=== PATIENT | male | born 1955 | race Caucasian/White ===

== ENCOUNTER 2017-04-29 09:47 | Day surgery (SDC) | payer OTHER ==
[2017-04-20 12:29] VITALS: BMI 28.5
--- NOTE | 2017-04-29 07:42 | HP ---
History & Physical Update - History History: No Change - Physical Physical: No Change - Assessment Assessment: No Change - Plan Plan: No Change (This is my first time meeting the patient. I have informed him that I will be assisting Dr. Newton for todays procedure. He is fine with it.)
[2017-04-29] MEDS ORDERED: oxyCODONE HCL 10 MG SUSTAINED ACTING TABLET PO STA (10:04)
[2017-04-29] MEDS ORDERED: CEFAZOLIN 2 GM in DEXTROSE 5%-WATER - 100 ML IVPB ONE (10:04)
[2017-04-29] MEDS ORDERED: oxyCODONE HCL 5 MG TABLET PO PRN (10:22)
[2017-04-29] MEDS ORDERED: ONDANSETRON 4 MG/2 ML VIAL IVPUSH PRN (10:22)
[2017-04-29] MEDS ORDERED: LACTATED RINGERS SOLUTION 1,000 ML IV SCH (10:30)
[2017-04-29] MEDS ORDERED: THROMBIN (BOVINE) 5,000 UNIT VIAL TP ONE ×2 (11:29→13:29)
[2017-04-29] MEDS ORDERED: LIDOCAINE 1%-EPI 1:100,000 30 ML MDV IJ ONE (11:29)
[2017-04-29] MEDS ORDERED: methylPREDNISolone ACET (DEPO) 40 MG/1 ML VIAL ONE (11:29)
[2017-04-29] MEDS ORDERED: BUPIVACAINE HCL/PF 2.5 MG/ML - 30 ML VIAL IJ ONE (11:29)
[2017-04-29] MEDS ORDERED: BUPIVACAINE HCL/PF 0.5% (5MG/ML) 10 ML VIAL ONE (11:59)
[2017-04-29] MEDS ORDERED: MIDAZOLAM HCL 2 MG/2 ML SINGLE DOSE VIAL ONE ×2 (12:02→12:54)
[2017-04-29] MEDS ORDERED: ONDANSETRON 4 MG/2 ML VIAL ONE (12:32)
[2017-04-29] MEDS ORDERED: DEXAMETHASONE SOD PHOSPHATE 4 MG/1 ML VIAL ONE (12:32)
[2017-04-29] MEDS ORDERED: ceFAZolin SODIUM 1 GM VIAL ONE (12:32)
[2017-04-29] MEDS ORDERED: LIDOCAINE 1%/EPI 1:100000 (50 ML MULTI DOSE VIAL) INF ONE (12:32)
[2017-04-29] MEDS ORDERED: methylPREDNISolone ACET (DEPO) 40 MG/1 ML VIAL IM ONE (13:44)
[2017-04-29] MEDS ORDERED: BUPIVACAINE HCL/PF 0.25% (2.5MG/ML) 10 ML VIAL IJ ONE (13:53)
--- NOTE | 2017-04-29 14:18 | SURG ---
Surgery Tablet Making Machine Operator Note Tablet Making Machine Operator: Seb Glass PA-C Date of Service: 04/29/17 Diagnosis: Spinal stenosis with radiculopathy Procedure: Bilateral laminectomy L3-L4, L4-L5 I was present for the entirety of the operative procedure. For further detail, please refer to operative report. Visit type - Case Type Case Type: Scheduled Admission - New patient This patient is new to me today: Yes Date on this admission: 04/29/17
--- NOTE | 2017-04-29 14:18 | OP ---
Operative Note - Note: Operative Date: 04/29/17 Pre-Operative Diagnosis: Spinal stenosis Operation: Bilateral laminectomy L3-L4, L4-L5 Post-Operative Diagnosis: Same as Pre-op Surgeon: Ramos Newton Heel Seat Trimmer: Seb Glass Anesthesia: Spinal Specimens Removed: None. Estimated Blood Loss (mls): 20 Fluid Volume Replaced (mls): 1,000 Operative Report Dictated: Yes
[2017-04-29] MEDS ORDERED: ACETAMINOPHEN 1000 MG/100 ML VIAL (NON FORMULARY) IVPB ONE (14:23)
--- NOTE | 2017-04-29 15:32 | OP ---
DATE OF OPERATION: 04/29/2017 PREOPERATIVE DIAGNOSIS: Spinal stenosis L3-4, L4-5. POSTOPERATIVE DIAGNOSIS: Spinal stenosis L3-4, L4-5. PROCEDURE PERFORMED: Laminectomy L3-4, L4-5. SURGEON: Ramos Newton MD NEEDLE STRAIGHTENER: BRENDA Armendariz ESTIMATED BLOOD LOSS: 50 mL. INTRAVENOUS FLUIDS: Per Anesthesia. ANESTHESIA: Spinal. COMPLICATIONS: There were none. DISPOSITION: Patient brought to the PACU in stable condition. INDICATION FOR SURGERY: The patient is a 61-year-old gentleman who has been suffering from pain from his back down his legs. X-rays and MRI were completed which noted that he has spinal stenosis at that level. He had gone through an exhaustive course of treatment for this which included medications, physical therapy, as well as injections. Unfortunately, his pain continued to persist despite all this. At this point risks, benefits, and alternatives were discussed and the patient consented to surgery. OPERATIVE NOTE: The patient was brought to the operating room by anesthesia staff. After appropriate patient identification was performed, spinal anesthesia was given. He was placed prone onto the [place] frame with all areas of bony prominences well padded. At this time 2 needles were placed into his back to jamie off the L3 and L5 levels. An x-ray was taken to confirm this was correct. [place] were removed and 10 mL of lidocaine with epinephrine was injected into his back. At this time his back was prepped and draped in a sterile manner. At this point timeout was completed. An incision was made from the top of L3 down to the bottom of L5. Dissection was carried down to the fascia. Fascia was then split open at this time. Appropriate retractor was then placed and a spinal needle was placed down to the L4-5 level. An x-ray was taken to confirm this was correct. Needle was removed, and the interspinous ligament at L3-4 and L4-5 was removed. The [employer] bone cutter was used to remove the spinous process of L4. The microscope was brought in. A bur was used to remove the lamina of L4. A complete decompression was performed so that by the end of the procedure the L4 and L5 nerve roots appeared to be well decompressed. All bleeding was well controlled at this time. Steroid was placed over the nerve root. FloSeal was placed over that. The fascia was closed with a No. 1 Vicryl suture. The subcutaneous tissue was closed with 2-0 Vicryl suture. Skin was closed with 3-0 Monocryl suture. Dermabond was applied. Steri-Strips were applied. A sterile dressing was applied. The patient was placed supine on the OR bed and brought to the PACU in stable condition. Bertha WEBBER/[id number]
[2017-04-29] MEDS ORDERED: oxyCODONE HCL 5 MG TABLET ONE ×2 (15:58→16:47)
[2017-04-29 16:33] VITALS: TEMP 98.1
[2017-04-29 18:21] VITALS: BP 126/78; PULSE 83
== END 2017-04-29 17:15 | disposition home or self-care (01) ==
LOC: FASU 09:47
PROVIDERS: ATTEND Orthopaedic Surgery Orthopaedic Surgery of the Spine
PROC: 01NB0ZZ Release Lumbar Nerve, Open Approach (ICD-10-PCS; principal; 2017-04-29 12:43)
DX: M48.06 Spinal stenosis, lumbar region (principal)
CPT/HCPCS: 72100-TC; 76000-TC; 94760

== ENCOUNTER 2017-05-10 17:52 | Inpatient (IN) | payer OTHER ==
--- NOTE | 2017-05-10 20:13 | PDOC ---
History of Present Illness - General History Source: Patient Exam Limitations: No Limitations - History of Present Illness Initial Comments: 05/10/17 20:58 The patient is a 61-year-old male, with a significant past medical history of GERD, hiatal hernia, barretts syndrome, squamous cell carcinoma, dyslipidemia, who presents to the ED with fever and worsening back pain. The patient states that his temperature was greater than 101 at home. The patient denies any chills, nausea, vomiting, diarrhea, or abdominal pain. <Felipa Babb - Last Filed: 05/10/17 23:36> <Emi Mccrary - Last Filed: 05/11/17 01:09> - General Chief Complaint: Wound Infection Stated Complaint: POST OP PAIN Time Seen by Provider: 05/10/17 17:54 Past History <Felipa Babb - Last Filed: 05/10/17 23:36> - Past Medical History Anemia: No Asthma: No Cancer: No Cardiac Disorders: No CVA: No COPD: No CHF: No Dementia: No Diabetes: No GI Disorders: Yes (VERDUGO'S GERD, HIATAL HERNIA) Disorders: No HTN: No Hypercholesterolemia: Yes Liver Disease: No Seizures: No Thyroid Disease: No - Surgical History Abdominal Surgery: No Appendectomy: No Cardiac Surgery: No Cholecystectomy: No Lung Surgery: No Neurologic Surgery: No Orthopedic Surgery: No - Psycho/Social/Smoking Cessation Hx Suicidal Ideation: No Smoking History: Never smoked Have you smoked in the past 12 months: No If you are a former smoker, when did you quit?: 2004 Information on smoking cessation initiated: No Hx Alcohol Use: No Drug/Substance Use Hx: No Substance Use Type: None Hx Substance Use Treatment: No <Emi Mccrary - Last Filed: 05/11/17 01:09> - Past Medical History Allergies/Adverse Reactions: Allergies Allergy/AdvReac Type Severity Reaction Status Date / Time No Known Drug Allergies Allergy Unverified 05/10/17 17:58 Home Medications: Ambulatory Orders Atorvastatin Ca [Lipitor] 40 mg PO HS 03/29/13 Fenofibrate 160 mg PO DAILY 11/06/15 Pantoprazole Sodium [Protonix -] 40 mg PO DAILY 07/14/16 Ibuprofen [Motrin -] 600 mg PO DAILY PRN 04/20/17 Oxycodone HCl/Acetaminophen [Percocet 5-325 mg Tablet] 1 tab PO Q6H PRN #20 tablet MDD 4 04/29/17 Review of Systems - Review of Systems Able to Perform ROS?: Yes Comments:: 05/10/17 20:58 CONSTITUTIONAL: Present: fever Absent: no chills, no fatigue EYES: Absent: visual changes ENT: Absent: ear pain, no sore throat CARDIOVASCULAR: Absent: chest pain, no palpitations RESPIRATORY: Absent: cough, no SOB GI: Absent: abdominal pain, no nausea, no vomiting, no constipation, no diarrhea GENITOURINARY: Absent: dysuria, no frequency, no hematuria MUSKULOSKELETAL: Present: back pain Absent: no arthralgia SKIN: Absent: rash NEURO: Absent: headache <Felipa Babb - Last Filed: 05/10/17 23:36> *Physical Exam - Vital Signs Last Vital Signs Temp Pulse Resp BP Pulse Ox 99.1 F 102 H 18 122/77 99 05/10/17 17:54 05/10/17 17:54 05/10/17 17:54 05/10/17 17:54 05/10/17 17:54 - Physical Exam Comments: 05/10/17 20:59 GENERAL: Well-appearing, well-nourished. HEENT: Normocephalic, atraumatic. PERRL, EOM intact. CARDIOVASCULAR: Normal S1, S2. Regular rate and rhythm. PULMONARY: Clear to auscultation bilaterally. ABDOMEN: Soft, non-distended, non-tender. MSK: +old 4 cm linear surgical incision on back. lumbar area: 10 cm linear incision that is closed and there is a surrounding area of mild erythema (20 cm around whole area). EXTREMITIES: Normal ROM in all four extremities. No gross deformities. SKIN: Warm, dry. NEUROLOGICAL: No focal neurological deficits. <Felipa Babb - Last Filed: 05/10/17 23:36> - Vital Signs Last Vital Signs Temp Pulse Resp BP Pulse Ox 99.1 F 102 H 18 122/77 99 05/10/17 17:54 05/10/17 17:54 05/10/17 17:54 05/10/17 17:54 05/10/17 17:54 <Emi Mccrary - Last Filed: 05/11/17 01:09> ED Treatment Course - LABORATORY CBC & Chemistry Diagram: 05/10/17 20:50 05/10/17 21:20 <SkinnyFelipa - Last Filed: 05/10/17 23:36> - LABORATORY CBC & Chemistry Diagram: 05/10/17 20:50 05/10/17 21:20 <Emi Mccrary - Last Filed: 05/11/17 01:09> Medical Decision Making - Medical Decision Making 05/10/17 21:48 Dr. Wilkerson was paged and notified via phone service. 05/10/17 22:08 Dr. Ramos Avilez was paged and notified via phone service. 05/10/17 23:37 Dr. Wilkerson was paged once again for follow-up. <Felipa Babb - Last Filed: 05/10/17 23:36> - Medical Decision Making 05/11/17 01:05 61 yo male s/p laminectomy April 29 p/w history of fever,increasing back pain and erythema around the site - reviewing his labs he has a leukocytosis of 18,000 -we paged the surgeon Dr Ramos Avilez and spoke to his physician volunteer assistant . She called him several times but he never returned her calls -the pt's primary physician is Dr Luigi Pyle and Dr Wilkerson admits his patients so I spoke with her and she agreed to admit for IV antibiotics <Emi Mccrary - Last Filed: 05/11/17 01:09> *DC/Admit/Observation/Transfer - Attestations Scribe Attestion: 05/10/17 21:03 Documentation prepared by Felipa Babb, acting as manager medical writing for Emi Mccrary MD. <Felipa Babb - Last Filed: 05/10/17 23:36> - Discharge Dispostion Admit: Yes <Emi Mccrary - Last Filed: 05/11/17 01:09> Diagnosis at time of Disposition: Wound drainage Fever Qualifiers: Fever type: due to other condition Qualified Code(s): R50.81 - Fever presenting with conditions classified elsewhere Leukocytosis Qualifiers: Leukocytosis type: other Qualified Code(s): D72.828 - Other elevated white blood cell count - Referrals Referrals: Luigi Pyle MD [Primary Care Provider] -
[2017-05-10] MEDS ORDERED: PIPERACILLIN/TAZOB 3.375 GM 3.375 GM in DEXTROSE 5%-WATER - 50 ML IVPB ONE (20:14)
[2017-05-10] MEDS ORDERED: VANCOMYCIN 1,000 MG in DEXTROSE 5%-WATER - 250 ML IVPB ONE (20:15)
[2017-05-10] MEDS ORDERED: VANCOMYCIN 1 GRAM (PRE-DOCKED) 250 ML IVPB ONE (21:03)
[2017-05-10] MEDS ORDERED: PIPERACILLIN/TAZOB 3.375 GM 50 ML IVPB ONE (21:03)
[2017-05-10 21:05] LABS: VENOUS BLOOD GAS HCO3 24.6 meq/L (19-25); VENOUS PH 7.35 (7.32-7.42)
[2017-05-10 21:09] LABS: BASOPHIL 0.2 % (0-2.0); EOSINOPHIL 0.4 % (0-4.5); MCH 32.6 pg (25.7-33.7); MCHC 33.8 g/dl (32.0-35.9); MEAN CELL VOLUME 96.4 fl (80-96); MEAN PLT VOLUME 7.8 fl (7.5-11.1); NEUTROPHILS 83.4 % (42.8-82.8); PLATELET COUNT 304 K/MM3 (134-434); RDW 12.9 % (11.9-15.9); WHITE BLOOD COUNT 18.2 K/mm3 (4.0-10.0)
[2017-05-10 21:26] LABS: INR 1.15 (0.82-1.09); PROTHROMBIN TIME (PATIENT) 12.7 SEC (9.98-11.88)
[2017-05-10 21:28] LABS: ACTIVATED PTT 29.1 SECONDS (26.9-34.4)
[2017-05-10 22:08] LABS: ALBUMIN 3.5 g/dl (3.4-5.0); ANION GAP 12 (8-16); BILIRUBIN,TOTAL 0.3 mg/dL (0.2-1.0); CALCIUM 9.2 mg/dL (8.5-10.1); CO2 23 mmol/L (21-32); CREATININE 0.8 mg/dL (0.7-1.3); GLUCOSE,RANDOM 99 mg/dL (74-106); SGOT/AST 17 U/L (15-37); SGPT/ALT 19 U/L (12-78); TOT PROT 7.2 g/dl (6.4-8.2)
[2017-05-10 22:10] LABS: ALK PHOS 70 U/L (45-117); TROPONIN I < 0.02 ng/ml (0.00-0.05)
[2017-05-11] MEDS ORDERED: PIPERACILLIN/TAZOB 3.375 GM/50 ML PRE-DOCKED IVPB ONE (05:15)
[2017-05-11] MEDS: morphine CARPU-JECT 2 MG/1 ML DISP.SYRIN IVPB PRN ×2 (05:28→20:08)
[2017-05-11 05:45] VITALS: BMI 29.5
[2017-05-11 08:37] LABS: MCH 33.4 pg (25.7-33.7); MCHC 34.8 g/dl (32.0-35.9); MEAN CELL VOLUME 95.9 fl (80-96); MEAN PLT VOLUME 7.5 fl (7.5-11.1); PLATELET COUNT 273 K/MM3 (134-434); RDW 12.7 % (11.9-15.9); WHITE BLOOD COUNT 15.6 K/mm3 (4.0-10.0)
[2017-05-11 08:57] LABS: ALBUMIN 3.4 g/dl (3.4-5.0); ANION GAP 9 (8-16); BILIRUBIN,TOTAL 0.5 mg/dL (0.2-1.0); CALCIUM 9.3 mg/dL (8.5-10.1); CO2 28 mmol/L (21-32); CREATININE 0.8 mg/dL (0.7-1.3); GLUCOSE,RANDOM 108 mg/dL (74-106); SGOT/AST 10 U/L (15-37); SGPT/ALT 18 U/L (12-78); TOT PROT 6.9 g/dl (6.4-8.2)
[2017-05-11 08:58] LABS: ALK PHOS 59 U/L (45-117)
[2017-05-11] MEDS ORDERED: PIPERACILLIN/TAZOB 3.375 GM/50 ML PRE-DOCKED IVPB SCH (09:00)
[2017-05-11] MEDS ORDERED: VANCOMYCIN 1 GRAM (PRE-DOCKED) 1,000 MG/250 ML BAG IVPB ONE (10:00)
--- NOTE | 2017-05-11 11:36 | EKG ---
Test Reason : Blood Pressure : / mmHG Vent. Rate : 070 BPM Atrial Rate : 070 BPM P-R Int : 168 ms QRS Dur : 088 ms QT Int : 382 ms P-R-T Axes : 027 003 004 degrees QTc Int : 412 ms NORMAL SINUS RHYTHM NORMAL ECG NO PREVIOUS ECGS AVAILABLE Confirmed by MICHAEL REINA MD ([id number]) on 05/11/2017 11:36:16 AM Referred By: Confirmed By:MICHAEL REINA MD
--- NOTE | 2017-05-11 11:45 | CONSULT ---
Addendum entered and electronically signed by Seb Glass PA 05/11/17 12:10: Dr. Newton coming in this evening to see patient. Original Note: <Seb Glass - Last Filed: 05/11/17 12:07> - Consultation REQUESTING PROVIDER: Ramos Newton MD CONSULT REQUEST: We have been asked to surgically evaluate this patient for a possible wound infection after surgery. PCP: Meme Wilkerson MD HPI: Called to eval 61 year old male. [facility] as he is POD #12 s/p bilateral laminectomy L3-L4, L4-L5. Since surgery, he continues to ambulate unassisted but states he now has a lot of pain/tightness in back. Patient went to Dr. Newton's office on 05/06/17 due to low back pain over incision site and wound drainage which he described as a clear fluid with a pink color to it. He was seen by a MENU PLANNER in his office who examined patient and changed his dressing. He informs me that he started having fevers at home (101 F by mouth). Came to [facility] ED for further evaluation. Labs show WBC 18K. Started on IV Zosyn and Vanco. He denies n/v/d, chills, abdominal pain, hematuria, flank pain, numbness, tingling or weakness to his extremities. PMHx: Mcmahon's Esophagus, GERD, Hiatal hernia, Spinal stenosis, Squamous cell carcinoma, Dyslipidemia PSHx: bilateral laminectomy L3-L4, L4-L5 on 04/29/[address] Ramos Newton Home Meds Atorvastatin Ca [Lipitor] 40 mg PO HS 03/29/13 Fenofibrate 160 mg PO DAILY 11/06/15 Pantoprazole Sodium [Protonix -] 40 mg PO DAILY 07/14/16 Ibuprofen [Motrin -] 600 mg PO DAILY PRN 04/20/17 Oxycodone HCl/Acetaminophen [Percocet 5-325 mg Tablet] 1 tab PO Q6H PRN #20 tablet MDD 4 04/29/17 Allergies: NKDA ROS: All systems reviewed and considered negative except for what's contained in HPI. PE: GENERAL: Awake, alert, and fully oriented, in NAD. HEAD: NC. AT. EYES: PERRL, sclera anicteric, conjunctiva clear. NECK: Normal ROM, supple without lymphadenopathy, JVD, or masses. LUNGS: CTA b/l anteriorly HEART: RRR ABDOMEN: Soft, NT. ND. MUSCULOSKELETAL: Normal ROM at all joints. No bony deformities or tenderness. No CVAT. Strength 5/5 in all extremities UE: 2+ pulses, warm, well-perfused. No cyanosis. Cap refill <2 seconds. No peripheral edema. LE: 2+ pulses, warm, well-perfused. No calf tenderness. No peripheral edema. NEUROLOGICAL: Normal speech, CN II-XII grossly intact. SKIN: lumbar incision about 4cm. Edges approximated well. Erthyema lateralizes bilateral to flanks (area demarcated with pen). Warm to touch. No induration or exudate drainage. Last Vital Signs Temp Pulse Resp BP Pulse Ox 98 F 65 20 120/63 97 05/11/17 05:40 05/11/17 05:40 05/11/17 05:40 05/11/17 05:40 05/11/17 05:49 CBC, BMP 05/11/17 08:15 05/11/17 08:15 INR, PTT INR 1.15 (0.82-1.09) H 05/10/17 20:50 Blood Type Blood Type A POSITIVE 05/10/17 20:50 Problem List - Problems (1) Status post lumbar laminectomy Assessment/Plan: POD #12 Continue OOB and ambulate Pain management PRN Cyclobenzaprine Above discussed with Dr. Newton and agrees Code(s): Z98.890 - OTHER SPECIFIED POSTPROCEDURAL STATES (2) Leukocytosis Assessment/Plan: Zosyn & Vanco as ordered Monitor WBC (was 18 on admit, now 15) Code(s): D72.829 - ELEVATED WHITE BLOOD CELL COUNT, UNSPECIFIED Qualifiers: Leukocytosis type: other Qualified Code(s): D72.828 - Other elevated white blood cell count (3) Fever Assessment/Plan: Ofirmev 1000gm Q6H PRN Code(s): R50.9 - FEVER, UNSPECIFIED Qualifiers: Fever type: due to other condition Qualified Code(s): R50.81 - Fever presenting with conditions classified elsewhere Visit type - Case Type Case Type: ED Admission - Emergency Emergency Visit: Yes ED Registration Date: 05/10/17 Care time: The patient presented to the Emergency Department on the above date and was hospitalized for further evaluation of their emergent condition. <Ramos Newton - Last Filed: 05/13/17 13:32> - Consultation REQUESTING PROVIDER: CONSULT REQUEST: We have been asked to surgically evaluate this patient for ( specify). PCP:Meme Wilkerson HISTORY OF PRESENT ILLNESS: PMHx: PSHx: Home Medications Medication Instructions Recorded Atorvastatin Ca [Lipitor] 40 mg PO HS 03/29/13 Fenofibrate 40 mg PO DAILY 11/06/15 Ibuprofen [Motrin -] 600 mg PO DAILY PRN 04/20/17 Omeprazole 40 PO DAILY 05/11/17 Allergies Allergy/AdvReac Type Severity Reaction Status Date / Time No Known Drug Allergies Allergy Unverified 05/10/17 17:58 REVIEW OF SYSTEMS: CONSTITUTIONAL: Absent: fever, chills, diaphoresis, generalized weakness, malaise, loss of appetite, weight change CARDIOVASCULAR: Absent: chest pain, syncope, palpitations, irregular heart rate, lightheadedness , peripheral edema RESPIRATORY: Absent: cough, shortness of breath, dyspnea with exertion, wheezing, stridor, hemoptysis GASTROINTESTINAL: Absent: abdominal pain, abdominal distension, nausea, vomiting, diarrhea, constipation, melena, hematochezia GENITOURINARY: Absent: dysuria, frequency, urgency, hesitancy, hematuria, flank pain, genital pain MUSCULOSKELETAL: Absent: myalgia, arthralgia, joint swelling, back pain, neck pain SKIN: Absent: rash, itching, pallor HEMATOLOGIC/IMMUNOLOGIC: Absent: easy bleeding, easy bruising, lymphadenopathy NEUROLOGIC: Absent: headache, focal weakness, paresthesias, dizziness, unsteady gait, seizure, mental status changes, bladder or bowel incontinence PSYCHIATRIC: Absent: anxiety, depression, suicidal or homicidal ideation, hallucinations. PHYSICAL EXAM: GENERAL: Awake, alert, and fully oriented, in no acute distress. HEAD: Normal with no signs of trauma. EYES: PERRL, sclera anicteric, conjunctiva clear. NECK: Normal ROM, supple without lymphadenopathy, JVD, or masses. LUNGS: Clear to auscultation bilat anteriorly. No wheezes, and no crackles. No accessory muscle use. HEART: Regular rate and rhythm. No murmurs ABDOMEN: Soft, nontender, not distended, normoactive bowel sounds, no guarding, no rebound, no masses. No organomegaly. MUSCULOSKELETAL: Normal ROM at all joints. No bony deformities or tenderness. No CVA tenderness. UPPER EXTREMITIES: 2+ pulses, warm, well-perfused. No cyanosis. Cap refill <2 seconds. No peripheral edema. LOWER EXTREMITIES: 2+ pulses, warm, well-perfused. No calf tenderness. No peripheral edema. NEUROLOGICAL: Normal speech, gait not observed. PSYCH: Cooperative. Good eye contact. Appropriate mood and affect. SKIN: Warm, dry, normal turgor, no rashes or lesions noted. Vital Signs Temperature 98.8 F 05/13/17 09:46 Pulse Rate 98 H 05/13/17 09:46 Respiratory Rate 20 05/13/17 09:46 Blood Pressure 138/74 05/13/17 09:46 O2 Sat by Pulse Oximetry (%) 98 05/13/17 06:00 Lab Results WBC 10.0 K/mm3 (4.0-10.0) 05/13/17 06:00 RBC 3.76 M/mm3 (4.00-5.60) L 05/13/17 06:00 Hgb 12.5 GM/dL (11.7-16.9) 05/13/17 06:00 Hct 35.9 % (35.4-49) 05/13/17 06:00 MCV 95.5 fl (80-96) 05/13/17 06:00 MCHC 34.8 g/dl (32.0-35.9) 05/13/17 06:00 RDW 12.9 % (11.9-15.9) 05/13/17 06:00 Plt Count 311 K/MM3 (134-434) D 05/13/17 06:00 Sodium 140 mmol/L (136-145) 05/13/17 06:00 Potassium 4.2 mmol/L (3.5-5.1) 05/13/17 06:00 Chloride 100 mmol/L (98-107) 05/13/17 06:00 Carbon Dioxide 29 mmol/L (21-32) 05/13/17 06:00 Anion Gap 11 (8-16) 05/13/17 06:00 BUN 10 mg/dL (7-18) D 05/13/17 06:00 Creatinine 0.7 mg/dL (0.7-1.3) 05/13/17 06:00 Random Glucose 126 mg/dL (74-106) H 05/13/17 06:00 Calcium 9.8 mg/dL (8.5-10.1) 05/13/17 06:00 Blood Type A POSITIVE 05/10/17 20:50 Antibody Screen Negative 05/10/17 20:50 INR 1.15 (0.82-1.09) H 05/10/17 20:50 05/11 Patient well known to me Mr Mercer is s/p Laminectomy. He called yesterday and was noted to have a fever. Patient was instructed to go to the ER. On exam today patient has 5/5 strength in his bilateral lower extremities. He is noted to have redness around his incision with no drainage. I palpated around the incision and could not appreciate any drainage. I explained to him that he may have a hematoma. He is scheduled to get an MRI. We will await the results of the MRI. Patient is in agreement with the plan. Ramos Newton
--- NOTE | 2017-05-11 14:22 | CONSULT ---
Consult Consult Specialty:: infectious diseases Reason for Consultation:: cellulitits of the back - History of Present Illness Chief Complaint: back pain History of Present Illness: 61-year-old male, with a significant past medical history of GERD, hiatal hernia , barretts syndrome, squamous cell carcinoma, dyslipidemia, who presents to the ED with fever and worsening back pain. The patient states that his temperature was greater than 101 at home. patient history is that patient had recently surgery on the and then subsequently developed drainage from the wound site patient went back to his surgeon and was told that not to worry and dressing was done and patient was send home. according to the patient his dressing started soaking and his pain was increasing. he also noted that the redness was increasing and ultimately he started spiking fevers which was 101 and patient came here and was found to have cellulits spreading on his back patient is very uncomfortable with pain in the back currently the patient is spiking fever and has a temp of 102.8 - History Source History Provided By: Patient Limitations to Obtaining History: No Limitations - Past Medical History Gastrointestinal: Yes: GERD, Hiatal Hernia, Other (Mcmahon's) Dermatology: Yes: Squamous Cell, Other - Alcohol/Substance Use Hx Alcohol Use: No - Smoking History Smoking history: Never smoked Have you smoked in the past 12 months: No Aproximately how many cigarettes per day: 0 If you are a former smoker, when did you quit?: 2004 Home Medications - Allergies Allergies/Adverse Reactions: Allergies Allergy/AdvReac Type Severity Reaction Status Date / Time No Known Drug Allergies Allergy Unverified 05/10/17 17:58 - Home Medications Home Medications: Ambulatory Orders Atorvastatin Ca [Lipitor] 40 mg PO HS 03/29/13 Fenofibrate 40 mg PO DAILY 11/06/15 Ibuprofen [Motrin -] 600 mg PO DAILY PRN 04/20/17 Omeprazole 40 PO DAILY 05/11/17 Review of Systems - Review of Systems Constitutional: reports: Fever Eyes: reports: No Symptoms HENT: reports: No Symptoms Neck: reports: No Symptoms Cardiovascular: reports: No Symptoms Respiratory: reports: No Symptoms Gastrointestinal: reports: No Symptoms Musculoskeletal: reports: Back Pain, Other Integumentary: reports: Change in Color, Erythema (extending a), Wound (reddish in color) Neurological: reports: No Symptoms Endocrine: reports: No Symptoms Hematology/Lymphatic: reports: No Symptoms Psychiatric: reports: No Symptoms Physical Exam Vital Signs: Vital Signs Temperature 98 F 05/11/17 05:40 Pulse Rate 65 05/11/17 05:40 Respiratory Rate 20 05/11/17 05:40 Blood Pressure 120/63 05/11/17 05:40 O2 Sat by Pulse Oximetry (%) 97 05/11/17 05:49 Constitutional: Yes: Moderate Distress, Obese, Other Eyes: Yes: Conjunctiva Clear HENT: Yes: Atraumatic, Normocephalic Neck: Yes: Supple Cardiovascular: Yes: Regular Rate and Rhythm Respiratory: Yes: Regular, CTA Bilaterally Gastrointestinal: Yes: Normal Bowel Sounds, Soft Musculoskeletal: Yes: Other Extremities: Yes: WNL Integumentary: Yes: Erythema, Other (patient has a wide area of erythema and cellulittis around the operated site with increased temprature and pain) Wound/Incision: Yes: Open to air Neurological: Yes: Alert, Oriented Psychiatric: Yes: Alert, Oriented Labs: CBC, BMP 05/11/17 08:15 05/11/17 08:15 Imaging - Results Chest X-ray: Report Reviewed, Image Reviewed Assessment/Plan patient with multiple medical problems post op recently from lumbar spine surgery coming to the hospital with cellulitis and pain in the back with drainage from the wound I suspect that the patient has developed infection at the site and we need to determine if he has underlying collection which is forming an abscess patient has tenderness at the lumbar region sepsis cellulitits of the back r/o collection/abscess in the back leukocytosis patient has phobia to mri plan stat mri vanco zosyn await for blood cx rest after the scan is done
[2017-05-11] MEDS: ACETAMINOPHEN 1000 MG/100 ML VIAL (NON FORMULARY) IVPB PRN (14:27)
[2017-05-11] MEDS ORDERED: PIPERACILLIN/TAZOB 3.375 GM 3.375 GM in DEXTROSE 5%-WATER - 50 ML IVPB SCH (14:30)
[2017-05-11] MEDS: CYCLOBENZAPRINE HCL 10 MG TABLET (FP) PO PRN (16:11)
[2017-05-11] MEDS: PIPERACILLIN/TAZOB 3.375 GM 50 ML IVPB SCH (17:55)
[2017-05-11] MEDS ORDERED: ALPRAZolam 0.25 MG TABLET PO ONE ×2 (19:30)
[2017-05-11] MEDS ORDERED: LORazepam 1 MG TABLET PO ONE (20:15)
[2017-05-11] MEDS: VANCOMYCIN 1 GRAM (PRE-DOCKED) 250 ML IVPB SCH (21:08)
[2017-05-11] MEDS ORDERED: VANCOMYCIN 1 GRAM (PRE-DOCKED) 1,000 MG/250 ML BAG IVPB SCH (22:00)
--- NOTE | 2017-05-11 22:45 | HP ---
Admitting History and Physical - Admission History of Present Illness: Pt is a 61 y/o male who recently underwent lamnectomy of LS spine at [facility] on 04/29/17 w/ Dr Newton. Pt began developing back pain w/ ? drainage and was seen in Dr. Newton's office for follow up. Pt began to develop fever to 101 and noticed redness along lower back along surgical incision. Pt still having lower back pain but is ambulating w/out problems or assistance. In the ER pt found to have WBC of 18,000. - Past Medical History Gastrointestinal: Yes: GERD, Hiatal Hernia, Other (Mcmahon's Esophagitis) Dermatology: Yes: Squamous Cell, Other - Past Surgical History Additional Past Surgical History: Lamnectomy LS spine - Smoking History Smoking history: Never smoked Have you smoked in the past 12 months: No Aproximately how many cigarettes per day: 0 If you are a former smoker, when did you quit?: 2004 - Alcohol/Substance Use Hx Alcohol Use: No Home Medications - Allergies Allergies/Adverse Reactions: Allergies Allergy/AdvReac Type Severity Reaction Status Date / Time No Known Drug Allergies Allergy Unverified 05/10/17 17:58 - Home Medications Home Medications: Ambulatory Orders Atorvastatin Ca [Lipitor] 40 mg PO HS 03/29/13 Fenofibrate 40 mg PO DAILY 11/06/15 Ibuprofen [Motrin -] 600 mg PO DAILY PRN 04/20/17 Omeprazole 40 PO DAILY 05/11/17 Family Disease History - Family Disease History Family History: Unremarkable Review of Systems - Review of Systems Constitutional: reports: Fever Eyes: reports: No Symptoms HENT: reports: No Symptoms Neck: reports: No Symptoms Cardiovascular: reports: No Symptoms Respiratory: reports: No Symptoms Gastrointestinal: reports: No Symptoms Musculoskeletal: reports: Back Pain Neurological: reports: No Symptoms Physical Examination Vital Signs: Vital Signs Temperature 98.9 F 05/11/17 20:03 Pulse Rate 77 05/11/17 20:03 Respiratory Rate 05/11/17 20:03 Blood Pressure 116/60 05/11/17 20:03 O2 Sat by Pulse Oximetry (%) 97 05/11/17 14:00 Constitutional: Yes: No Distress Eyes: Yes: WNL HENT: Yes: WNL Neck: Yes: WNL Cardiovascular: Yes: WNL Respiratory: Yes: WNL Gastrointestinal: Yes: WNL, Normal Bowel Sounds, Soft Extremities: Yes: WNL Edema: No Integumentary: Yes: Other ((+) surgical incision lumbarsacral area w/ surrounding erythema and drainage) Neurological: Yes: WNL, Alert, Oriented ...Motor Strength: WNL Labs: CBC, BMP 05/11/17 08:15 05/11/17 08:15 Problem List - Problems (1) Fever Assessment/Plan: Cont IV zosyn/vanco Monitor WBC Long d/w pt about need for MRI LS spine bc pt has increased anxiety Will try to use ativan Pt initially refused MRI and CT scan waas ordered Follow BC ID consult Dr Newton aware of admission Code(s): R50.9 - FEVER, UNSPECIFIED Qualifiers: Fever type: due to other condition Qualified Code(s): R50.81 - Fever presenting with conditions classified elsewhere (2) Leukocytosis Code(s): D72.829 - ELEVATED WHITE BLOOD CELL COUNT, UNSPECIFIED Qualifiers: Leukocytosis type: other Qualified Code(s): D72.828 - Other elevated white blood cell count (3) Status post lumbar laminectomy Code(s): Z98.890 - OTHER SPECIFIED POSTPROCEDURAL STATES (4) GERD (gastroesophageal reflux disease) Assessment/Plan: Cont protonix Code(s): K21.9 - GASTRO-ESOPHAGEAL REFLUX DISEASE WITHOUT ESOPHAGITIS (5) HLD (hyperlipidemia) Assessment/Plan: Cont fenofibrate/lipitor Code(s): E78.5 - HYPERLIPIDEMIA, UNSPECIFIED
[2017-05-12] MEDS: ACETAMINOPHEN 1000 MG/100 ML VIAL (NON FORMULARY) IVPB PRN (00:09)
[2017-05-12] MEDS: PIPERACILLIN/TAZOB 3.375 GM 50 ML IVPB SCH ×2 (01:04→10:05)
[2017-05-12 07:32] LABS: BASOPHIL 0.2 % (0-2.0); EOSINOPHIL 0.7 % (0-4.5); MCH 33.1 pg (25.7-33.7); MCHC 34.9 g/dl (32.0-35.9); MEAN PLT VOLUME 7.5 fl (7.5-11.1); NEUTROPHILS 80.1 % (42.8-82.8); PLATELET COUNT 256 K/MM3 (134-434); RDW 12.6 % (11.9-15.9); WHITE BLOOD COUNT 11.5 K/mm3 (4.0-10.0)
[2017-05-12 07:56] LABS: ALBUMIN 2.8 g/dl (3.4-5.0)
[2017-05-12 08:01] LABS: ALK PHOS 53 U/L (45-117); ANION GAP 9 (8-16); BILIRUBIN,TOTAL 0.4 mg/dL (0.2-1.0); CALCIUM 8.9 mg/dL (8.5-10.1); CO2 28 mmol/L (21-32); CREATININE 0.7 mg/dL (0.7-1.3); GLUCOSE,RANDOM 126 mg/dL (74-106); SGOT/AST 12 U/L (15-37); SGPT/ALT 19 U/L (12-78); TOT PROT 6.1 g/dl (6.4-8.2)
--- NOTE | 2017-05-12 08:47 | PN ---
Addendum entered and electronically signed by Seb Glass PA 05/12/17 13:29: Still waiting for MRI Original Note: Progress Note (short form) - Note Progress Note: Alert. Sitting in bed eating breakfast. Compliant with ambulating. Voiding spontaneously. States he continues to have low back pain and draining clear fluid. ID consult appreciated. States his fevers are subsiding (on Ofirmev). Denies n/v /c, numbness, tingling or weakness. Last Vital Signs Temp Pulse Resp BP Pulse Ox 98.6 F 71 20 119/71 97 05/12/17 05:18 05/12/17 05:18 05/12/17 06:00 05/12/17 05:18 05/12/17 06:00 WBC TREND 05/10/17 05/11/17 05/12/17 20:50 08:15 06:00 WBC 18.2 H 15.6 H 11.5 H General: nad Back: lumbar incision intact. Area of erythema demarctaed with pen yesterday and no signs of spreading. + soft tissue swelling. No induration. Minimal serosanguious drainage Musculoskeletal: strength 5/5 b/l LE <Seb Glass - Last Filed: 05/12/17 08:49> - Note Progress Note: Awaiting MRI No change in neuro status <Ramos Newton - Last Filed: 05/13/17 13:33> Problem List - Problems (1) Status post lumbar laminectomy Assessment/Plan: POD #13 f/u MRI Tylenol for fever > 100.3F Cont to ambulate Diet as tolerated Leukocytosis resolving Possible dc today with PO abx pending results of MRI Above plan discussed with Dr. Newton and agrees Code(s): Z98.890 - OTHER SPECIFIED POSTPROCEDURAL STATES <Seb Glass - Last Filed: 05/12/17 08:49>
[2017-05-12] MEDS ORDERED: FENOFIBRIC ACID 45 MG CAP PO SCH (10:00)
[2017-05-12] MEDS: VANCOMYCIN 1 GRAM (PRE-DOCKED) 250 ML IVPB SCH (10:05)
[2017-05-12] MEDS: HEPARIN NA (PORCINE) 5,000 UNITS/ML 1ML VIAL SQ SCH ×2 (10:14→21:25)
[2017-05-12] MEDS: PANTOPRAZOLE 40 MG TABLET (FP) PO SCH (10:20)
[2017-05-12] MEDS ORDERED: PT OWN MED DRAWER 7, Y5N ONE (10:21)
[2017-05-12] MEDS: FENOFIBRIC ACID 45 MG CAP PO SCH (10:22)
[2017-05-12] MEDS: morphine CARPU-JECT 2 MG/1 ML DISP.SYRIN IVPB PRN (12:03)
[2017-05-12] MEDS ORDERED: LORazepam 1 MG TABLET PO ONE ×2 (12:15→12:30)
--- NOTE | 2017-05-12 13:57 | PN ---
Progress Note, Physician History of Present Illness: patient stable no new issues still spiking fevers had mri done today says wound draining fluid - Current Medication List Current Medications: Active Medications Atorvastatin Calcium (Lipitor -) 40 mg PO [facility] Cyclobenzaprine HCl (Flexeril -) 10 mg PO TID PRN PRN Reason: MUSCLE SPASMS Last Admin: 05/11/17 16:11 Dose: 10 mg Fenofibric Acid (Trilipix -) 45 mg PO DAILY [facility] Last Admin: 05/12/17 10:22 Dose: 45 mg Heparin Sodium (Porcine) (Heparin -) 5,000 unit SQ BID [facility] Last Admin: 05/12/17 10:14 Dose: 5,000 unit Vancomycin HCl (Vancomycin (Pre-Docked)) 250 mls @ 166.667 mls/hr IVPB BID [facility] PRN Reason: Protocol Last Admin: 05/12/17 10:05 Dose: 166.667 mls/hr Piperacillin Sod/Tazobactam Sod (Zosyn 3.375gm Ivpb (Pre-Docked)) 50 mls @ 100 mls/hr IVPB Q8H-IV [facility] PRN Reason: Protocol Last Admin: 05/12/17 10:05 Dose: 100 mls/hr Morphine Sulfate (Morphine Injection -) 2 mg IVPB Q6H PRN PRN Reason: PAIN Last Admin: 05/12/17 12:03 Dose: 2 mg Pantoprazole Sodium (Protonix -) 40 mg PO DAILY [facility] Last Admin: 05/12/17 10:20 Dose: 40 mg - Objective Vital Signs: Vital Signs Temperature 98.6 F 05/12/17 05:18 Pulse Rate 71 05/12/17 05:18 Respiratory Rate 20 05/12/17 06:00 Blood Pressure 119/71 05/12/17 05:18 O2 Sat by Pulse Oximetry (%) 97 05/12/17 06:00 Constitutional: Yes: Calm, Mild Distress Cardiovascular: Yes: Regular Rate and Rhythm Respiratory: Yes: Regular, CTA Bilaterally Gastrointestinal: Yes: Normal Bowel Sounds, Soft Musculoskeletal: Yes: Back Pain, Other Extremities: Yes: Other Neurological: Yes: Alert, Oriented Psychiatric: Yes: Alert, Oriented Labs: CBC, BMP 05/12/17 06:00 05/12/17 06:00 INR, PTT INR 1.15 (0.82-1.09) H 05/10/17 20:50 Assessment/Plan sepsis cellulitits of the back r/o collection/abscess in the back leukocytosis patient had mri patients blood cx now growing mssa bacteremia plan i am going to stop zosyn will switch to cefazolin await for mri results will order repeat blood cx tomorrow
[2017-05-12] MEDS ORDERED: CEFAZOLIN 1 GM/D5W 50 ML IVPB SCH (14:00)
[2017-05-12] MEDS: CEFAZOLIN (PRE-DOCKED) 50 ML IVPB SCH (17:04)
[2017-05-12] MEDS: ACETAMINOPHEN 325 MG TABLET (FP) PO PRN (21:35)
[2017-05-12] MEDS: CYCLOBENZAPRINE HCL 10 MG TABLET (FP) PO PRN (21:36)
[2017-05-12] MEDS ORDERED: ATORVASTATIN CA 40 MG TABLET (FP) PO SCH (22:00)
--- NOTE | 2017-05-12 22:40 | PN ---
Progress Note, Physician History of Present Illness: Pt spiked temp to > 102 and still having back pain Pt had MRI and spoke to radiologist about findings - Current Medication List Current Medications: Active Medications Acetaminophen (Tylenol -) 650 mg PO Q6H PRN PRN Reason: FEVER OR PAIN Last Admin: 05/12/17 21:35 Dose: 650 mg Atorvastatin Calcium (Lipitor -) 40 mg PO HS [facility] Last Admin: 05/12/17 21:25 Dose: 40 mg Cyclobenzaprine HCl (Flexeril -) 10 mg PO TID PRN PRN Reason: MUSCLE SPASMS Last Admin: 05/12/17 21:36 Dose: 10 mg Fenofibric Acid (Trilipix -) 45 mg PO DAILY [facility] Last Admin: 05/12/17 10:22 Dose: 45 mg Heparin Sodium (Porcine) (Heparin -) 5,000 unit SQ BID [facility] Last Admin: 05/12/17 21:25 Dose: 5,000 unit Cefazolin Sodium (Ancef 1gm Ivpb (Pre-Docked)) 50 mls @ 100 mls/hr IVPB Q8H-IV [facility] Last Admin: 05/12/17 17:04 Dose: 100 mls/hr Morphine Sulfate (Morphine Injection -) 2 mg IVPB Q6H PRN PRN Reason: PAIN Last Admin: 05/12/17 12:03 Dose: 2 mg Pantoprazole Sodium (Protonix -) 40 mg PO DAILY [facility] Last Admin: 05/12/17 10:20 Dose: 40 mg - Objective Vital Signs: Vital Signs Temperature 100 F H 05/12/17 18:00 Pulse Rate 89 05/12/17 18:00 Respiratory Rate 20 05/12/17 18:00 Blood Pressure 122/67 05/12/17 18:00 O2 Sat by Pulse Oximetry (%) 98 05/12/17 14:00 Constitutional: Yes: No Distress Eyes: Yes: WNL HENT: Yes: WNL Neck: Yes: WNL, Supple Cardiovascular: Yes: WNL, Regular Rate and Rhythm Respiratory: Yes: WNL, Regular, CTA Bilaterally Gastrointestinal: Yes: WNL, Normal Bowel Sounds, Soft Extremities: Yes: WNL Edema: No Integumentary: Yes: Other ((+) clear drainage from surgical incision w/ surrounding erythema/warmth) Neurological: Yes: WNL ...Motor Strength: WNL Labs: CBC, BMP 05/12/17 06:00 05/12/17 06:00 INR, PTT INR 1.15 (0.82-1.09) H 05/10/17 20:50 Problem List - Problems (1) Fever Assessment/Plan: Cont IV zosyn/vanco Spoke to radiologist about MRI LS spine Also spoke to Dr Newton who looked at MRI and felt there was a dx of hematoma Spoke w/ pt and his at length about dx of pseudomeningocele/fluid collection/microabscess and possibilty of hematoma Will try at this time to transfer to [facility] Awaiting surgical consult Code(s): R50.9 - FEVER, UNSPECIFIED Qualifiers: Fever type: due to other condition Qualified Code(s): R50.81 - Fever presenting with conditions classified elsewhere (2) Status post lumbar laminectomy Code(s): Z98.890 - OTHER SPECIFIED POSTPROCEDURAL STATES (3) GERD (gastroesophageal reflux disease) Assessment/Plan: Cont protonix Code(s): K21.9 - GASTRO-ESOPHAGEAL REFLUX DISEASE WITHOUT ESOPHAGITIS (4) HLD (hyperlipidemia) Assessment/Plan: Cont fenofibrate/lipitor Code(s): E78.5 - HYPERLIPIDEMIA, UNSPECIFIED
[2017-05-13] MEDS: CEFAZOLIN (PRE-DOCKED) 50 ML IVPB SCH ×3 (01:57→13:29)
[2017-05-13] MEDS: ACETAMINOPHEN 325 MG TABLET (FP) PO PRN (06:41)
[2017-05-13 07:51] LABS: BASOPHIL 0.4 % (0-2.0); EOSINOPHIL 0.9 % (0-4.5); MCH 33.3 pg (25.7-33.7); MCHC 34.8 g/dl (32.0-35.9); MEAN CELL VOLUME 95.5 fl (80-96); MEAN PLT VOLUME 7.5 fl (7.5-11.1); NEUTROPHILS 74.1 % (42.8-82.8); PLATELET COUNT 311 K/MM3 (134-434); RDW 12.9 % (11.9-15.9)
[2017-05-13 08:30] LABS: ALBUMIN 3.1 g/dl (3.4-5.0); ALK PHOS 64 U/L (45-117); ANION GAP 11 (8-16); BILIRUBIN,TOTAL 0.4 mg/dL (0.2-1.0); CALCIUM 9.8 mg/dL (8.5-10.1); CO2 29 mmol/L (21-32); CREATININE 0.7 mg/dL (0.7-1.3); GLUCOSE,RANDOM 126 mg/dL (74-106); SGOT/AST 16 U/L (15-37); SGPT/ALT 29 U/L (12-78); TOT PROT 7.1 g/dl (6.4-8.2)
--- NOTE | 2017-05-13 09:52 | PN ---
Addendum entered and electronically signed by Eden Mckinnon PA 05/13/17 17:03 : Patient seen by Dr. Joao Gaytan, plan to take patient to OR this evening for exploration of the surgical wound, debridement, repair of the dura Original Note: Progress Note (short form) - Note Progress Note: Surgery- Dr. Newton Patient seen and examined. States he is still having pain and stiffness in his lower back, but the pain is a little better. States he has increased pain with movement. He has been ambulating. He has been urinating without issue. He complains of feeling of fever and sweats last night. He is tolerating his diet without nausea or vomiting. Last Vital Signs Temp Pulse Resp BP Pulse Ox 98.8 F 98 H 20 138/74 98 05/13/17 09:46 05/13/17 09:46 05/13/17 09:46 05/13/17 09:46 05/13/17 06:00 CBC, BMP 05/13/17 06:00 05/13/17 06:00 Exam: Gen: NAD Back: Incision intact with soft tissue swelling, area of erythema improving and appears less than larger area previously outlined in pen, no active drainage Musculoskeletal: strength 5/5 bilat. LE <Eden Mckinnon - Last Filed: 05/13/17 17:01> - Note Progress Note: Please see my previous note I was in the operating room and asked Dr Gaytan to see the patient and take over care of Mr Mercer I discussed the details of the case with him and he agreed to take over his care. <Ramos Newton - Last Filed: 05/20/17 10:34> Problem List - Problems (1) Status post lumbar laminectomy Assessment/Plan: POD #14 Continue Tylenol PRN fever, pain management WBC improved, but continued elevation in temps, abx and cx per ID Dr. Newton placing consult with Dr. Joao Gatyan, neurosurgery Code(s): Z98.890 - OTHER SPECIFIED POSTPROCEDURAL STATES <Eden Mckinnon - Last Filed: 05/13/17 17:01>
[2017-05-13] MEDS ORDERED: PT OWN MED DRAWER 7, Y5N ONE (10:39)
[2017-05-13] MEDS: PANTOPRAZOLE 40 MG TABLET (FP) PO SCH (11:05)
[2017-05-13] MEDS: HEPARIN NA (PORCINE) 5,000 UNITS/ML 1ML VIAL SQ SCH ×2 (11:05→22:07)
[2017-05-13] MEDS: FENOFIBRIC ACID 45 MG CAP PO SCH (11:06)
[2017-05-13] MEDS: CYCLOBENZAPRINE HCL 10 MG TABLET (FP) PO PRN (11:07)
--- NOTE | 2017-05-13 13:36 | PN ---
Progress Note (short form) - Note Progress Note: I reviewed the MRI films Patient noted to have an increase in temperature I am at [facility] today. I asked Dr Leija (neurosurgeon) to see the patient. I am concerned that he may have an infected hematoma. I discussed this with the patient and the family and told them that Dr Leija (covering physician) will be seeing the patient on my behalf.
--- NOTE | 2017-05-13 13:57 | CONSULT ---
Consult - text type - Consultation Consultation Note: Asked to see this patient by Dr. Ramos Newton. Ricardo Mercer is a 61 year old [place] male who has a history of low back and radicular pains. He was treated with L45 decompression on April 29, 2017 at [facility] by Dr. Ramos Newton. He receovered well from uneventful surgery and there was no identified durotomy. The patient had a small amount of clear drainage when seen in outpatient follow-up, but no signs of infection and he was otherwise recovering well. The patient presented to the [facility] ER on WednesdayMay 10 with increased drainage which now had a purulent tinge as well as fevers and erythema/tenderness around the wound. His Temperature exceeded 102 degrees F. He was admitted and started on Vancomycin and Zosyn. He improved clinically in terms of temperature, pain and erythema surrounding the wound, however, he has developed postural headaches and some chills with positive blood cultures and increased clear drainage from the wound. MRI from May 12 demonstrates a fluid collection in the surgical bed which has a similar signal intensity to CSF and there is tracking above the fascia and to the skin. There appears to be some pressure from this collection on the nerves of the cauda equina and ventral displacement and compression against the disc. 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 The patient also has multiple levels of additional degenerative pathology above and below the L45 level and some persisting disc bulge at this level (preoperative films not available for my review). I had a long discussion with the patient regarding his current condition and the concerns for CSF leakage, hematoma, infection and persisting pathology at untreated levels. I explained that a conservative approach might be reasonable, however, the risks of meningitis with CSF in contact with an infected wound would support surgical attention. I described the risks, benefits and alternatives to exploration of the surgical wound, debridement, repair of the dura possibly with a patch or requiring extension of the decompression/incision, bilateral soft tissue advancement flaps for a water-tight fascial closure and closure with or without drains ( subfascial, suprafascial or possibly spinal drainage). The risks included, but were not limited to: , coma, paralysis, bleeding, infection, leakage of CSF and failure to improve. I explained that the more aggressive the efforts to repair the CSF fistula, the more difficult it will be to clear the infection and vice versa. I explained that I would seek to find a middle ground and adequately address both concerns, however, additional intervention such as delayed spinal drainage or additional surgery/surgeries may be required to get this wound to heal. I used a variety of visual aides to illustrate the anatomy, pathology and challenges of correcting this problem. I stressed that the goals of surgery would be focused on wound healing with cessation of the CSF leakage and clearance of the infection as top priorities and that this is not intended to be a definitive procedure for his other spinal conditions which may require subsequent treatment. I offered the patient and family the option of seeking another opinion or another surgeon. All questions were answered. I spoke with a relative of the patient who is a Neuroradiologist who is in complete agreement with my assessment and plans for expedited surgery. We will make the patient NPO and prepare him for this procedure. Informed consent was obtained. I spent one hour with the patient and family, the majority of time was in counseling.
[2017-05-13] MEDS ORDERED: LIDOCAINE 1%/EPI 1:100000 (50 ML MULTI DOSE VIAL) ONE (14:56)
[2017-05-13] MEDS ORDERED: VANCOMYCIN 1,000 MG VIAL (RESTRICTED TO ID ONLY) ONE ×2 (15:10→17:53)
--- NOTE | 2017-05-13 15:36 | PN ---
Progress Note, Physician History of Present Illness: patient feeling much better mri results noted surgery note noted - Current Medication List Current Medications: Active Medications Acetaminophen (Tylenol -) 650 mg PO Q6H PRN PRN Reason: FEVER OR PAIN Last Admin: 05/13/17 06:41 Dose: 650 mg Atorvastatin Calcium (Lipitor -) 40 mg PO HS [facility] Last Admin: 05/12/17 21:25 Dose: 40 mg Cyclobenzaprine HCl (Flexeril -) 10 mg PO TID PRN PRN Reason: MUSCLE SPASMS Last Admin: 05/13/17 11:07 Dose: 10 mg Fenofibric Acid (Trilipix -) 45 mg PO DAILY [facility] Last Admin: 05/13/17 11:06 Dose: 45 mg Heparin Sodium (Porcine) (Heparin -) 5,000 unit SQ BID [facility] Last Admin: 05/13/17 11:05 Dose: 5,000 unit Cefazolin Sodium (Ancef 1gm Ivpb (Pre-Docked)) 50 mls @ 100 mls/hr IVPB Q8H-IV [facility] Last Admin: 05/13/17 13:29 Dose: 100 mls/hr Morphine Sulfate (Morphine Injection -) 2 mg IVPB Q6H PRN PRN Reason: PAIN Last Admin: 05/12/17 12:03 Dose: 2 mg Pantoprazole Sodium (Protonix -) 40 mg PO DAILY [facility] Last Admin: 05/13/17 11:05 Dose: 40 mg - Objective Vital Signs: Vital Signs Temperature 99.4 F 05/13/17 14:57 Pulse Rate 88 05/13/17 14:57 Respiratory Rate 20 05/13/17 14:57 Blood Pressure 130/74 05/13/17 14:57 O2 Sat by Pulse Oximetry (%) 98 05/13/17 06:00 Constitutional: Yes: No Distress, Calm, Obese Cardiovascular: Yes: Regular Rate and Rhythm Respiratory: Yes: Regular, CTA Bilaterally Gastrointestinal: Yes: Normal Bowel Sounds, Soft Musculoskeletal: Yes: Other Extremities: Yes: Other Wound/Incision: Yes: Draining, Other Neurological: Yes: Alert, Oriented Psychiatric: Yes: Alert, Oriented Labs: CBC, BMP 05/13/17 06:00 05/13/17 06:00 INR, PTT INR 1.15 (0.82-1.09) H 05/10/17 20:50 - ....Imaging MRI: Report Reviewed, Image Reviewed Assessment/Plan sepsis cellulitits of the back collection/abscess in the back/csf leak leukocytosis gm positive bacteremia (1) Fever Code(s): R50.9 - FEVER, UNSPECIFIED Qualifiers: Fever type: due to other condition Qualified Code(s): R50.81 - Fever presenting with conditions classified elsewhere (2) Status post lumbar laminectomy Code(s): Z98.890 - OTHER SPECIFIED POSTPROCEDURAL STATES (3) GERD (gastroesophageal reflux disease) Code(s): K21.9 - GASTRO-ESOPHAGEAL REFLUX DISEASE WITHOUT ESOPHAGITIS (4) HLD (hyperlipidemia) Code(s): E78.5 - HYPERLIPIDEMIA, UNSPECIFIED plan continue cefazolin for surgery please send cx post op rest as per surgery
[2017-05-13] MEDS ORDERED: LIDOCAINE HCL/PF 2% SDV 5ML VIAL ONE (16:31)
[2017-05-13] MEDS ORDERED: PROPOFOL 20 ML ONE ×2 (16:31→16:52)
[2017-05-13] MEDS ORDERED: SUCCINYLCHOLINE CHLORIDE 200 MG/10 ML VIAL ONE ×2 (16:31→16:51)
[2017-05-13] MEDS ORDERED: ROCURONIUM BROMIDE 50 MG/5 ML VIAL ONE (16:32)
[2017-05-13] MEDS ORDERED: ceFAZolin SODIUM 1 GM VIAL IVPB ONE (17:06)
[2017-05-13] MEDS ORDERED: VANCOMYCIN 1,000 MG VIAL (RESTRICTED TO ID ONLY) IVPB ONE (17:57)
[2017-05-13] MEDS ORDERED: BACITRACIN 50,000 UNITS VIAL NR ONE (17:58)
[2017-05-13] MEDS ORDERED: NEOSTIGMINE METHYLSULFATE 0.5 MG/ML - 10 ML MDV ONE (17:59)
[2017-05-13] MEDS ORDERED: GLYCOPYRROLATE 0.2 MG/1 ML VIAL ONE ×2 (17:59)
[2017-05-13] MEDS ORDERED: ACETAMINOPHEN 1000 MG/100 ML VIAL (NON FORMULARY) IVPB ONE (18:50)
[2017-05-13] MEDS ORDERED: PROMETHAZINE HCL 25 MG/1 ML VIAL IVPUSH PRN (18:59)
[2017-05-13] MEDS ORDERED: ONDANSETRON 4 MG/2 ML VIAL IVPUSH PRN (18:59)
[2017-05-13] MEDS ORDERED: ALPRAZolam 0.25 MG TABLET PO ONE (19:12)
[2017-05-13] MEDS ORDERED: morphine CARPU-JECT 2 MG/1 ML DISP.SYRIN IVPB PRN (19:12)
[2017-05-13] MEDS ORDERED: ACETAMINOPHEN INJECTION 100 ML IVPB ONE (19:17)
[2017-05-13] MEDS: oxyCODONE HCL 5 MG TABLET PO PRN (22:06)
[2017-05-13] MEDS: ATORVASTATIN CA 40 MG TABLET (FP) PO SCH (22:07)
--- NOTE | 2017-05-13 23:42 | PN ---
Progress Note, Physician - Current Medication List Current Medications: Active Medications Acetaminophen (Tylenol -) 650 mg PO Q6H PRN PRN Reason: FEVER OR PAIN Atorvastatin Calcium (Lipitor -) 40 mg PO HS [facility] Last Admin: 05/13/17 22:07 Dose: 40 mg Cyclobenzaprine HCl (Flexeril -) 10 mg PO TID PRN PRN Reason: MUSCLE SPASMS Fenofibric Acid (Trilipix -) 45 mg PO DAILY [facility] Fentanyl (Sublimaze Injection -) 50 mcg IVPUSH [id number] PRN PRN Reason: PAIN Stop: 05/16/17 19:00 Heparin Sodium (Porcine) (Heparin -) 5,000 unit SQ BID [facility] Last Admin: 05/13/17 22:07 Dose: 5,000 unit Cefazolin Sodium (Ancef 1gm Ivpb (Pre-Docked)) 50 mls @ 100 mls/hr IVPB Q8H-IV [facility] Morphine Sulfate (Morphine Injection -) 2 mg IVPB Q6H PRN PRN Reason: PAIN Ondansetron HCl (Zofran Injection) 4 mg IVPUSH Q6H PRN PRN Reason: NAUSEA AND/OR VOMITING Stop: 05/14/17 01:00 Oxycodone HCl (Roxicodone -) 10 mg PO Q4H PRN PRN Reason: SEVERE PAIN Stop: 05/14/17 18:58 Last Admin: 05/13/17 22:06 Dose: 10 mg Pantoprazole Sodium (Protonix -) 40 mg PO DAILY [facility] Promethazine HCl (Phenergan Injection -) 12.5 mg IVPUSH Q6H PRN PRN Reason: NAUSEA Stop: 05/14/17 01:00 - Objective Vital Signs: Vital Signs Temperature 98.6 F 05/13/17 22:00 Pulse Rate 98 H 05/13/17 22:00 Respiratory Rate 18 05/13/17 22:00 Blood Pressure 98/55 05/13/17 22:00 O2 Sat by Pulse Oximetry (%) 97 05/13/17 21:00 Labs: CBC, BMP 05/13/17 06:00 05/13/17 06:00 INR, PTT INR 1.15 (0.82-1.09) H 05/10/17 20:50 Problem List - Problems (1) Fever Code(s): R50.9 - FEVER, UNSPECIFIED Qualifiers: Fever type: due to other condition Qualified Code(s): R50.81 - Fever presenting with conditions classified elsewhere (2) Status post lumbar laminectomy Code(s): Z98.890 - OTHER SPECIFIED POSTPROCEDURAL STATES (3) GERD (gastroesophageal reflux disease) Code(s): K21.9 - GASTRO-ESOPHAGEAL REFLUX DISEASE WITHOUT ESOPHAGITIS (4) HLD (hyperlipidemia) Code(s): E78.5 - HYPERLIPIDEMIA, UNSPECIFIED
[2017-05-14] MEDS: CEFAZOLIN (PRE-DOCKED) 50 ML IVPB SCH ×3 (01:44→17:57)
[2017-05-14] MEDS: ACETAMINOPHEN 325 MG TABLET (FP) PO PRN ×2 (04:15→17:57)
[2017-05-14 07:51] LABS: ALBUMIN 2.3 g/dl (3.4-5.0); ANION GAP 8 (8-16); BASOPHIL 0.2 % (0-2.0); BILIRUBIN,TOTAL 0.4 mg/dL (0.2-1.0); CALCIUM 9.1 mg/dL (8.5-10.1); CO2 28 mmol/L (21-32); CREATININE 0.6 mg/dL (0.7-1.3); GLUCOSE,RANDOM 118 mg/dL (74-106); MCH 33.1 pg (25.7-33.7); MCHC 34.8 g/dl (32.0-35.9); MEAN CELL VOLUME 95.2 fl (80-96); MEAN PLT VOLUME 7.4 fl (7.5-11.1); NEUTROPHILS 77.3 % (42.8-82.8); PLATELET COUNT 294 K/MM3 (134-434); RDW 12.8 % (11.9-15.9); SGOT/AST 15 U/L (15-37); SGPT/ALT 20 U/L (12-78); WHITE BLOOD COUNT 9.4 K/mm3 (4.0-10.0)
[2017-05-14 07:52] LABS: ALK PHOS 46 U/L (45-117); TOT PROT 5.4 g/dl (6.4-8.2)
[2017-05-14] MEDS ORDERED: PT OWN MED DRAWER 7, Y5N ONE (10:16)
[2017-05-14] MEDS: FENOFIBRIC ACID 45 MG CAP PO SCH (10:20)
[2017-05-14] MEDS: PANTOPRAZOLE 40 MG TABLET (FP) PO SCH (10:20)
[2017-05-14] MEDS: HEPARIN NA (PORCINE) 5,000 UNITS/ML 1ML VIAL SQ SCH ×2 (10:21→22:41)
--- NOTE | 2017-05-14 11:41 | PN ---
Progress Note (short form) - Note Progress Note: Anesthesia POD#1 S/P Debridement of spine wound under GA. AWAKE Alert, VSS,no N/V . N0 complications to anesthesia seen. Bruna Barajas MD. ,
--- NOTE | 2017-05-14 12:06 | PN ---
Progress Note (short form) - Note Progress Note: Yi Mercer is 1 day status post wound washout and revision with repair of pseudomeningocele. He is resting comfortably with only minimal incisional pain. We reviewed the surgical procedure and findings. Cultures are all negative at this early date. I was unable to review the Gram's stain results. His dressing is clean, dry and intact and he has no headaches. He greeted me warmly by rising to meet me. He was able to ambulate in the [place] with only modest discomfort. He is afebrile and his WBC has decreased from 18,000. He is voiding significantly and I feel that he can avoid Diamox (acetazoleamide) . I feel that he would benefit from Physical Therapy. I plan for skin clip removal in 2 weeks and will discuss antibiotic regimen, potential discharge date and further management with Dr. Wilkerson. All questions were answered.
[2017-05-14] MEDS: oxyCODONE HCL 5 MG TABLET PO PRN (13:30)
--- NOTE | 2017-05-14 13:31 | PN ---
Progress Note, Physician History of Present Illness: patient doing well feeling much better no complaints back pain better post op - Current Medication List Current Medications: Active Medications Acetaminophen (Tylenol -) 650 mg PO Q6H PRN PRN Reason: FEVER OR PAIN Last Admin: 05/14/17 04:15 Dose: 650 mg Atorvastatin Calcium (Lipitor -) 40 mg PO HS [facility] Last Admin: 05/13/17 22:07 Dose: 40 mg Cyclobenzaprine HCl (Flexeril -) 10 mg PO TID PRN PRN Reason: MUSCLE SPASMS Fenofibric Acid (Trilipix -) 45 mg PO DAILY [facility] Last Admin: 05/14/17 10:20 Dose: 45 mg Fentanyl (Sublimaze Injection -) 50 mcg IVPUSH [id number] PRN PRN Reason: PAIN Stop: 05/16/17 19:00 Heparin Sodium (Porcine) (Heparin -) 5,000 unit SQ BID [facility] Last Admin: 05/14/17 10:21 Dose: 5,000 unit Cefazolin Sodium (Ancef 1gm Ivpb (Pre-Docked)) 50 mls @ 100 mls/hr IVPB Q8H-IV [facility] Last Admin: 05/14/17 10:20 Dose: 100 mls/hr Morphine Sulfate (Morphine Injection -) 2 mg IVPB Q6H PRN PRN Reason: PAIN Oxycodone HCl (Roxicodone -) 10 mg PO Q4H PRN PRN Reason: SEVERE PAIN Stop: 05/14/17 18:58 Last Admin: 05/13/17 22:06 Dose: 10 mg Pantoprazole Sodium (Protonix -) 40 mg PO DAILY [facility] Last Admin: 05/14/17 10:20 Dose: 40 mg - Objective Vital Signs: Vital Signs Temperature 98.4 F 05/14/17 09:15 Pulse Rate 93 H 05/14/17 09:15 Respiratory Rate 18 05/14/17 09:15 Blood Pressure 118/67 05/14/17 09:15 O2 Sat by Pulse Oximetry (%) 97 05/13/17 21:00 Constitutional: Yes: No Distress, Calm Cardiovascular: Yes: Regular Rate and Rhythm Respiratory: Yes: Regular, CTA Bilaterally Gastrointestinal: Yes: Normal Bowel Sounds, Soft Musculoskeletal: Yes: WNL Extremities: Yes: WNL Wound/Incision: Yes: Other (dressing c/d/i) Neurological: Yes: Alert, Oriented Psychiatric: Yes: Alert, Oriented Labs: CBC, BMP 05/14/17 06:20 05/14/17 06:20 INR, PTT INR 1.15 (0.82-1.09) H 05/10/17 20:50 Assessment/Plan sepsis cellulitits of the back collection/abscess in the back/csf leak leukocytosis gm positive bacteremia (1) Fever Code(s): R50.9 - FEVER, UNSPECIFIED Qualifiers: Fever type: due to other condition Qualified Code(s): R50.81 - Fever presenting with conditions classified elsewhere (2) Status post lumbar laminectomy Code(s): Z98.890 - OTHER SPECIFIED POSTPROCEDURAL STATES (3) GERD (gastroesophageal reflux disease) Code(s): K21.9 - GASTRO-ESOPHAGEAL REFLUX DISEASE WITHOUT ESOPHAGITIS (4) HLD (hyperlipidemia) Code(s): E78.5 - HYPERLIPIDEMIA, UNSPECIFIED plan continue cefazolin await for cx reports i do not expect them to be positive as he was covered with abx he will need 3-[address] will await all other results also down the road he will need repeat mri
[2017-05-14] MEDS: CYCLOBENZAPRINE HCL 10 MG TABLET (FP) PO PRN ×2 (16:36→22:42)
--- NOTE | 2017-05-14 20:00 | PN ---
Progress Note, Physician - Current Medication List Current Medications: Active Medications Acetaminophen (Tylenol -) 650 mg PO Q6H PRN PRN Reason: FEVER OR PAIN Last Admin: 05/14/17 17:57 Dose: 650 mg Atorvastatin Calcium (Lipitor -) 40 mg PO HS [facility] Last Admin: 05/13/17 22:07 Dose: 40 mg Cyclobenzaprine HCl (Flexeril -) 10 mg PO TID PRN PRN Reason: MUSCLE SPASMS Last Admin: 05/14/17 16:36 Dose: 10 mg Fenofibric Acid (Trilipix -) 45 mg PO DAILY [facility] Last Admin: 05/14/17 10:20 Dose: 45 mg Fentanyl (Sublimaze Injection -) 50 mcg IVPUSH [id number] PRN PRN Reason: PAIN Stop: 05/16/17 19:00 Heparin Sodium (Porcine) (Heparin -) 5,000 unit SQ BID [facility] Last Admin: 05/14/17 10:21 Dose: 5,000 unit Cefazolin Sodium (Ancef 1gm Ivpb (Pre-Docked)) 50 mls @ 100 mls/hr IVPB Q8H-IV [facility] Last Admin: 05/14/17 17:57 Dose: 100 mls/hr Morphine Sulfate (Morphine Injection -) 2 mg IVPB Q6H PRN PRN Reason: PAIN Last Admin: 05/14/17 15:22 Dose: 2 mg Pantoprazole Sodium (Protonix -) 40 mg PO DAILY [facility] Last Admin: 05/14/17 10:20 Dose: 40 mg - Objective Vital Signs: Vital Signs Temperature 99.1 F 05/14/17 17:13 Pulse Rate 99 H 05/14/17 17:13 Respiratory Rate 18 05/14/17 17:13 Blood Pressure 124/69 05/14/17 17:13 O2 Sat by Pulse Oximetry (%) 97 05/13/17 21:00 Labs: CBC, BMP 05/14/17 06:20 05/14/17 06:20 INR, PTT INR 1.15 (0.82-1.09) H 05/10/17 20:50 Problem List - Problems (1) Fever Code(s): R50.9 - FEVER, UNSPECIFIED Qualifiers: Fever type: due to other condition Qualified Code(s): R50.81 - Fever presenting with conditions classified elsewhere (2) Status post lumbar laminectomy Code(s): Z98.890 - OTHER SPECIFIED POSTPROCEDURAL STATES (3) GERD (gastroesophageal reflux disease) Code(s): K21.9 - GASTRO-ESOPHAGEAL REFLUX DISEASE WITHOUT ESOPHAGITIS (4) HLD (hyperlipidemia) Code(s): E78.5 - HYPERLIPIDEMIA, UNSPECIFIED
[2017-05-14] MEDS: ATORVASTATIN CA 40 MG TABLET (FP) PO SCH (22:42)
[2017-05-15] MEDS ORDERED: oxyCODONE HCL 5 MG TABLET PO PRN
[2017-05-15] MEDS: CEFAZOLIN (PRE-DOCKED) 50 ML IVPB SCH ×4 (01:59→18:16)
[2017-05-15] MEDS: HEPARIN NA (PORCINE) 5,000 UNITS/ML 1ML VIAL SQ SCH ×2 (10:25→22:07)
[2017-05-15] MEDS: PANTOPRAZOLE 40 MG TABLET (FP) PO SCH (10:25)
[2017-05-15] MEDS ORDERED: PT OWN MED DRAWER 7, Y5N ONE (10:26)
[2017-05-15] MEDS: FENOFIBRIC ACID 45 MG CAP PO SCH (10:27)
[2017-05-15] MEDS: CYCLOBENZAPRINE HCL 10 MG TABLET (FP) PO PRN ×2 (10:44→22:08)
[2017-05-15] MEDS ORDERED: LORazepam 1 MG TABLET PO ONE (14:30)
[2017-05-15] MEDS: ACETAMINOPHEN 325 MG TABLET (FP) PO PRN ×2 (14:42→22:11)
--- NOTE | 2017-05-15 16:21 | PN ---
Progress Note, Physician History of Present Illness: patient stable was c/o of numbness in the leg but was able to walk to the bathroom now he is doing better looked at the wound with the surgeon wound looks good - Current Medication List Current Medications: Active Medications Acetaminophen (Tylenol -) 650 mg PO Q6H PRN PRN Reason: FEVER OR PAIN Last Admin: 05/15/17 14:42 Dose: 650 mg Atorvastatin Calcium (Lipitor -) 40 mg PO HS [facility] Last Admin: 05/14/17 22:42 Dose: 40 mg Cyclobenzaprine HCl (Flexeril -) 10 mg PO TID PRN PRN Reason: MUSCLE SPASMS Last Admin: 05/15/17 10:44 Dose: 10 mg Fenofibric Acid (Trilipix -) 45 mg PO DAILY [facility] Last Admin: 05/15/17 10:27 Dose: 45 mg Fentanyl (Sublimaze Injection -) 50 mcg IVPUSH [id number] PRN PRN Reason: PAIN Stop: 05/16/17 19:00 Heparin Sodium (Porcine) (Heparin -) 5,000 unit SQ BID [facility] Last Admin: 05/15/17 10:25 Dose: 5,000 unit Cefazolin Sodium (Ancef 1gm Ivpb (Pre-Docked)) 50 mls @ 100 mls/hr IVPB Q8H-IV [facility] Last Admin: 05/15/17 10:27 Dose: 100 mls/hr Morphine Sulfate (Morphine Injection -) 2 mg IVPB Q6H PRN PRN Reason: PAIN Last Admin: 05/14/17 15:22 Dose: 2 mg Oxycodone HCl (Roxicodone -) 10 mg PO Q4H PRN PRN Reason: SEVERE PAIN Last Admin: 05/15/17 14:43 Dose: 10 mg Pantoprazole Sodium (Protonix -) 40 mg PO DAILY [facility] Last Admin: 05/15/17 10:25 Dose: 40 mg - Objective Vital Signs: Vital Signs Temperature 97.9 F 05/15/17 14:27 Pulse Rate 99 H 05/15/17 14:27 Respiratory Rate 16 05/15/17 14:27 Blood Pressure 93/51 05/15/17 14:27 O2 Sat by Pulse Oximetry (%) 97 05/13/17 21:00 Constitutional: Yes: No Distress, Calm Cardiovascular: Yes: Regular Rate and Rhythm Respiratory: Yes: Regular, CTA Bilaterally Gastrointestinal: Yes: Normal Bowel Sounds, Soft Musculoskeletal: Yes: Back Pain Extremities: Yes: WNL Wound/Incision: Yes: Clean/Dry, Dressing Removed (wound looked at) Neurological: Yes: Alert, Oriented Psychiatric: Yes: Alert, Oriented Labs: CBC, BMP 05/14/17 06:20 05/14/17 06:20 INR, PTT INR 1.15 (0.82-1.09) H 05/10/17 20:50 Assessment/Plan sepsis cellulitits of the back collection/abscess in the back/csf leak leukocytosis gm positive bacteremia (1) Fever Code(s): R50.9 - FEVER, UNSPECIFIED Qualifiers: Fever type: due to other condition Qualified Code(s): R50.81 - Fever presenting with conditions classified elsewhere (2) Status post lumbar laminectomy Code(s): Z98.890 - OTHER SPECIFIED POSTPROCEDURAL STATES (3) GERD (gastroesophageal reflux disease) Code(s): K21.9 - GASTRO-ESOPHAGEAL REFLUX DISEASE WITHOUT ESOPHAGITIS (4) HLD (hyperlipidemia) Code(s): E78.5 - HYPERLIPIDEMIA, UNSPECIFIED plan continue cefazolin repeat cx result noted as far as i think it is the same organism as per blood will resend the cultures tomorrow continue wound care
--- NOTE | 2017-05-15 16:55 | PN ---
Progress Note (short form) - Note Progress Note: Patient with history of recent lumbar infection. Called regarding patient having some stiffness and numbness. When I spoke with the patient he informed me that he woke up with stiffness in his shoulders and hips and this abated after some time of moving around he also described a generalize feeling of heaviness. He also complained of some numbness in his anterior thighs. Upon upon inspection of his dressing some bloody drainage was noted at the caudal terminus. Given these findings consideration for emergent MRI was made and offered to the patient, however, he declined. Upon my examination of the patient he was at his neurological baseline and acknowledge that he had no acute deficit which is why he had declined at the MRI. He had no difficulty going to the bathroom and does not describe any pain. I removed his dressing and noted that the incision is clean dry and intact for, however there is some serious blood tinged drainage from the area of the epithelialization which pre- existed before his most recent surgery for me. There is no new area of injury and overall erythema and induration is less. I placed some Neosporin on the right area and place the new sterile dressing with gauze and clear film dressing. I discussed suture removal with the patient to be scheduled for WednesdayMay 24 at 10 AM at my office at [facility] [facility], [address] on the first floor of the [facility]. At this point there is no acute neurological change nor complaint and the villarreal issue appears to have been addressed. review of the recent cultures show that all of them are popular for MSSA and the patient is currently on cefazolin which is felt to be an appropriate antibiotic for this. I remain available to discuss this case further and emphasize to the patient that were he to develop a neurological change that he should consider an MRI if we order it at that point I also answered all of his and his spouse's questions and we are all in agreement with the current plan of care.
--- NOTE | 2017-05-15 19:44 | PN ---
Progress Note, Physician - Current Medication List Current Medications: Active Medications Acetaminophen (Tylenol -) 650 mg PO Q6H PRN PRN Reason: FEVER OR PAIN Last Admin: 05/15/17 14:42 Dose: 650 mg Atorvastatin Calcium (Lipitor -) 40 mg PO HS [facility] Last Admin: 05/14/17 22:42 Dose: 40 mg Cyclobenzaprine HCl (Flexeril -) 10 mg PO TID PRN PRN Reason: MUSCLE SPASMS Last Admin: 05/15/17 10:44 Dose: 10 mg Fenofibric Acid (Trilipix -) 45 mg PO DAILY [facility] Last Admin: 05/15/17 10:27 Dose: 45 mg Fentanyl (Sublimaze Injection -) 50 mcg IVPUSH [id number] PRN PRN Reason: PAIN Stop: 05/16/17 19:00 Heparin Sodium (Porcine) (Heparin -) 5,000 unit SQ BID [facility] Last Admin: 05/15/17 10:25 Dose: 5,000 unit Cefazolin Sodium (Ancef 1gm Ivpb (Pre-Docked)) 50 mls @ 100 mls/hr IVPB Q8H-IV [facility] Last Admin: 05/15/17 18:16 Dose: 100 mls/hr Morphine Sulfate (Morphine Injection -) 2 mg IVPB Q6H PRN PRN Reason: PAIN Last Admin: 05/14/17 15:22 Dose: 2 mg Oxycodone HCl (Roxicodone -) 10 mg PO Q4H PRN PRN Reason: SEVERE PAIN Last Admin: 05/15/17 14:43 Dose: 10 mg Pantoprazole Sodium (Protonix -) 40 mg PO DAILY [facility] Last Admin: 05/15/17 10:25 Dose: 40 mg - Objective Vital Signs: Vital Signs Temperature 98.4 F 05/15/17 16:15 Pulse Rate 99 H 05/15/17 16:15 Respiratory Rate 18 05/15/17 16:15 Blood Pressure 132/75 05/15/17 16:15 O2 Sat by Pulse Oximetry (%) 97 05/13/17 21:00 Labs: CBC, BMP 05/14/17 06:20 05/14/17 06:20 INR, PTT INR 1.15 (0.82-1.09) H 05/10/17 20:50 Problem List - Problems (1) Fever Code(s): R50.9 - FEVER, UNSPECIFIED Qualifiers: Fever type: due to other condition Qualified Code(s): R50.81 - Fever presenting with conditions classified elsewhere (2) Status post lumbar laminectomy Code(s): Z98.890 - OTHER SPECIFIED POSTPROCEDURAL STATES (3) GERD (gastroesophageal reflux disease) Code(s): K21.9 - GASTRO-ESOPHAGEAL REFLUX DISEASE WITHOUT ESOPHAGITIS (4) HLD (hyperlipidemia) Code(s): E78.5 - HYPERLIPIDEMIA, UNSPECIFIED
[2017-05-15] MEDS: ATORVASTATIN CA 40 MG TABLET (FP) PO SCH (22:07)
[2017-05-16] MEDS: CEFAZOLIN (PRE-DOCKED) 50 ML IVPB SCH ×3 (02:27→18:41)
[2017-05-16] MEDS: PANTOPRAZOLE 40 MG TABLET (FP) PO SCH (10:47)
[2017-05-16] MEDS: HEPARIN NA (PORCINE) 5,000 UNITS/ML 1ML VIAL SQ SCH ×2 (10:48→22:08)
[2017-05-16] MEDS: FENOFIBRIC ACID 45 MG CAP PO SCH (10:48)
[2017-05-16 13:31] LABS: MCH 33.1 pg (25.7-33.7); MCHC 34.4 g/dl (32.0-35.9); MEAN PLT VOLUME 7.2 fl (7.5-11.1); PLATELET COUNT 393 K/MM3 (134-434); RDW 12.6 % (11.9-15.9); WHITE BLOOD COUNT 9.5 K/mm3 (4.0-10.0)
[2017-05-16 13:55] LABS: ALBUMIN 3.1 g/dl (3.4-5.0); ANION GAP 9 (8-16); BILIRUBIN,TOTAL 0.2 mg/dL (0.2-1.0); CALCIUM 9.6 mg/dL (8.5-10.1); CO2 30 mmol/L (21-32); CREATININE 0.6 mg/dL (0.7-1.3); GLUCOSE,RANDOM 122 mg/dL (74-106); SGOT/AST 37 U/L (15-37); SGPT/ALT 31 U/L (12-78); TOT PROT 6.9 g/dl (6.4-8.2)
[2017-05-16 13:56] LABS: ALK PHOS 57 U/L (45-117)
[2017-05-16 14:16] LABS: PLATELET ESTIMATE ADEQUATE (NORMAL); SMUDGE CELLS MODERATE
[2017-05-16] MEDS: CYCLOBENZAPRINE HCL 10 MG TABLET (FP) PO PRN ×2 (14:19→22:09)
[2017-05-16] MEDS: ACETAMINOPHEN 325 MG TABLET (FP) PO PRN ×2 (14:19→22:09)
--- NOTE | 2017-05-16 15:54 | PN ---
Progress Note, Physician History of Present Illness: continues to do well no issues says he is feeling much better no complaints today of numbness or any pain - Current Medication List Current Medications: Active Medications Acetaminophen (Tylenol -) 650 mg PO Q6H PRN PRN Reason: FEVER OR PAIN Last Admin: 05/16/17 14:19 Dose: 650 mg Atorvastatin Calcium (Lipitor -) 40 mg PO HS [facility] Last Admin: 05/15/17 22:07 Dose: 40 mg Cyclobenzaprine HCl (Flexeril -) 10 mg PO TID PRN PRN Reason: MUSCLE SPASMS Last Admin: 05/16/17 14:19 Dose: 10 mg Fenofibric Acid (Trilipix -) 45 mg PO DAILY [facility] Last Admin: 05/16/17 10:48 Dose: 45 mg Fentanyl (Sublimaze Injection -) 50 mcg IVPUSH [id number] PRN PRN Reason: PAIN Stop: 05/16/17 19:00 Heparin Sodium (Porcine) (Heparin -) 5,000 unit SQ BID [facility] Last Admin: 05/16/17 10:48 Dose: 5,000 unit Cefazolin Sodium (Ancef 1gm Ivpb (Pre-Docked)) 50 mls @ 100 mls/hr IVPB Q8H-IV [facility] Last Admin: 05/16/17 10:47 Dose: 100 mls/hr Morphine Sulfate (Morphine Injection -) 2 mg IVPB Q6H PRN PRN Reason: PAIN Last Admin: 05/14/17 15:22 Dose: 2 mg Oxycodone HCl (Roxicodone -) 10 mg PO Q4H PRN PRN Reason: SEVERE PAIN Last Admin: 05/15/17 14:43 Dose: 10 mg Pantoprazole Sodium (Protonix -) 40 mg PO DAILY [facility] Last Admin: 05/16/17 10:47 Dose: 40 mg - Objective Vital Signs: Vital Signs Temperature 99.3 F 05/16/17 14:47 Pulse Rate 76 05/16/17 10:00 Respiratory Rate 18 05/16/17 10:00 Blood Pressure 132/68 05/16/17 10:00 O2 Sat by Pulse Oximetry (%) 98 05/16/17 09:00 Constitutional: Yes: No Distress, Calm Cardiovascular: Yes: Regular Rate and Rhythm Respiratory: Yes: Regular, CTA Bilaterally Gastrointestinal: Yes: Normal Bowel Sounds, Soft Musculoskeletal: Yes: Back Pain Extremities: Yes: WNL Wound/Incision: Yes: Dressing Dry and Intact Neurological: Yes: Alert, Oriented Psychiatric: Yes: Alert, Oriented Labs: CBC, BMP 05/16/17 13:00 05/16/17 13:00 INR, PTT INR 1.15 (0.82-1.09) H 05/10/17 20:50 Assessment/Plan sepsis cellulitits of the back collection/abscess in the back/csf leak leukocytosis gm positive bacteremia (1) Fever Code(s): R50.9 - FEVER, UNSPECIFIED Qualifiers: Fever type: due to other condition Qualified Code(s): R50.81 - Fever presenting with conditions classified elsewhere (2) Status post lumbar laminectomy Code(s): Z98.890 - OTHER SPECIFIED POSTPROCEDURAL STATES (3) GERD (gastroesophageal reflux disease) Code(s): K21.9 - GASTRO-ESOPHAGEAL REFLUX DISEASE WITHOUT ESOPHAGITIS (4) HLD (hyperlipidemia) Code(s): E78.5 - HYPERLIPIDEMIA, UNSPECIFIED plan continue cefazolin will repeat blood cx tomorrow patient is going to need abx for at least 4 weeks rest continue as per primary wbc has normalized
--- NOTE | 2017-05-16 19:58 | PN ---
Progress Note, Physician History of Present Illness: Pt has been afebrile and is ambulating No further numbness - Current Medication List Current Medications: Active Medications Acetaminophen (Tylenol -) 650 mg PO Q6H PRN PRN Reason: FEVER OR PAIN Last Admin: 05/16/17 14:19 Dose: 650 mg Atorvastatin Calcium (Lipitor -) 40 mg PO HS [facility] Last Admin: 05/15/17 22:07 Dose: 40 mg Cyclobenzaprine HCl (Flexeril -) 10 mg PO TID PRN PRN Reason: MUSCLE SPASMS Last Admin: 05/16/17 14:19 Dose: 10 mg Fenofibric Acid (Trilipix -) 45 mg PO DAILY [facility] Last Admin: 05/16/17 10:48 Dose: 45 mg Heparin Sodium (Porcine) (Heparin -) 5,000 unit SQ BID [facility] Last Admin: 05/16/17 10:48 Dose: 5,000 unit Cefazolin Sodium (Ancef 1gm Ivpb (Pre-Docked)) 50 mls @ 100 mls/hr IVPB Q8H-IV [facility] Last Admin: 05/16/17 18:41 Dose: 100 mls/hr Oxycodone HCl (Roxicodone -) 10 mg PO Q4H PRN PRN Reason: SEVERE PAIN Last Admin: 05/15/17 14:43 Dose: 10 mg Pantoprazole Sodium (Protonix -) 40 mg PO DAILY [facility] Last Admin: 05/16/17 10:47 Dose: 40 mg - Objective Vital Signs: Vital Signs Temperature 98.7 F 05/16/17 16:20 Pulse Rate 100 H 05/16/17 16:20 Respiratory Rate 18 05/16/17 16:20 Blood Pressure 124/78 05/16/17 16:20 O2 Sat by Pulse Oximetry (%) 98 05/16/17 09:00 Constitutional: Yes: No Distress HENT: Yes: WNL Neck: Yes: WNL, Supple Cardiovascular: Yes: WNL, Regular Rate and Rhythm Respiratory: Yes: WNL, Regular, CTA Bilaterally Gastrointestinal: Yes: WNL, Normal Bowel Sounds, Soft Musculoskeletal: Yes: Other (Dressing in place) Labs: CBC, BMP 05/16/17 13:00 05/16/17 13:00 INR, PTT INR 1.15 (0.82-1.09) H 05/10/17 20:50 Problem List - Problems (1) Fever Assessment/Plan: Due to bacteremia/cellulitis/abscess Wound culture/fluid culture and BC are (+) for MSSA Cont IV cefazolin Probably will need for 4 weeks as per ID Repeat BC in am Code(s): R50.9 - FEVER, UNSPECIFIED Qualifiers: Fever type: due to other condition Qualified Code(s): R50.81 - Fever presenting with conditions classified elsewhere (2) Status post lumbar laminectomy Assessment/Plan: Cont flexeril Start PT in am Code(s): Z98.890 - OTHER SPECIFIED POSTPROCEDURAL STATES (3) GERD (gastroesophageal reflux disease) Assessment/Plan: Cont protonix Code(s): K21.9 - GASTRO-ESOPHAGEAL REFLUX DISEASE WITHOUT ESOPHAGITIS (4) HLD (hyperlipidemia) Assessment/Plan: Cont fenofibrate/lipitor Code(s): E78.5 - HYPERLIPIDEMIA, UNSPECIFIED
[2017-05-16] MEDS: ATORVASTATIN CA 40 MG TABLET (FP) PO SCH (22:08)
[2017-05-17] MEDS: CEFAZOLIN (PRE-DOCKED) 50 ML IVPB SCH ×3 (01:49→17:08)
[2017-05-17] MEDS ORDERED: PT OWN MED DRAWER 7, Y5N ONE (09:57)
[2017-05-17] MEDS: HEPARIN NA (PORCINE) 5,000 UNITS/ML 1ML VIAL SQ SCH ×2 (09:59→21:53)
[2017-05-17] MEDS: PANTOPRAZOLE 40 MG TABLET (FP) PO SCH (09:59)
[2017-05-17] MEDS: FENOFIBRIC ACID 45 MG CAP PO SCH (09:59)
--- NOTE | 2017-05-17 14:01 | PN ---
Progress Note, Physician History of Present Illness: patient doing well no complaints no issues continues to be afebrile - Current Medication List Current Medications: Active Medications Acetaminophen (Tylenol -) 650 mg PO Q6H PRN PRN Reason: FEVER OR PAIN Last Admin: 05/16/17 22:09 Dose: 650 mg Atorvastatin Calcium (Lipitor -) 40 mg PO HS [facility] Last Admin: 05/16/17 22:08 Dose: 40 mg Cyclobenzaprine HCl (Flexeril -) 10 mg PO TID PRN PRN Reason: MUSCLE SPASMS Last Admin: 05/16/17 22:09 Dose: 10 mg Fenofibric Acid (Trilipix -) 45 mg PO DAILY [facility] Last Admin: 05/17/17 09:59 Dose: 45 mg Heparin Sodium (Porcine) (Heparin -) 5,000 unit SQ BID [facility] Last Admin: 05/17/17 09:59 Dose: 5,000 unit Cefazolin Sodium (Ancef 1gm Ivpb (Pre-Docked)) 50 mls @ 100 mls/hr IVPB Q8H-IV [facility] Last Admin: 05/17/17 09:59 Dose: 100 mls/hr Oxycodone HCl (Roxicodone -) 10 mg PO Q4H PRN PRN Reason: SEVERE PAIN Last Admin: 05/15/17 14:43 Dose: 10 mg Pantoprazole Sodium (Protonix -) 40 mg PO DAILY [facility] Last Admin: 05/17/17 09:59 Dose: 40 mg - Objective Vital Signs: Vital Signs Temperature 99.0 F 05/17/17 09:53 Pulse Rate 102 H 05/17/17 09:53 Respiratory Rate 16 05/17/17 09:53 Blood Pressure 136/84 05/17/17 09:53 O2 Sat by Pulse Oximetry (%) 98 05/17/17 09:00 Constitutional: Yes: No Distress, Calm Cardiovascular: Yes: Regular Rate and Rhythm Respiratory: Yes: Regular, CTA Bilaterally Gastrointestinal: Yes: Normal Bowel Sounds, Soft Musculoskeletal: Yes: WNL Extremities: Yes: WNL Wound/Incision: Yes: Clean/Dry, Dressing Dry and Intact Neurological: Yes: Alert, Oriented Psychiatric: Yes: Alert, Oriented Labs: CBC, BMP 05/16/17 13:00 05/16/17 13:00 INR, PTT INR 1.15 (0.82-1.09) H 05/10/17 20:50 Assessment/Plan sepsis cellulitits of the back collection/abscess in the back/csf leak leukocytosis gm positive bacteremia (1) Fever Code(s): R50.9 - FEVER, UNSPECIFIED Qualifiers: Fever type: due to other condition Qualified Code(s): R50.81 - Fever presenting with conditions classified elsewhere (2) Status post lumbar laminectomy Code(s): Z98.890 - OTHER SPECIFIED POSTPROCEDURAL STATES (3) GERD (gastroesophageal reflux disease) Code(s): K21.9 - GASTRO-ESOPHAGEAL REFLUX DISEASE WITHOUT ESOPHAGITIS (4) HLD (hyperlipidemia) Code(s): E78.5 - HYPERLIPIDEMIA, UNSPECIFIED plan continue cefazolin repeat blood cx pending rest as per surgery and as per primary
--- NOTE | 2017-05-17 14:50 | PN ---
Progress Note (short form) - Note Progress Note: Patient resting comfortably. Afebrile and without complaint. Able to ambulate and participate in Physical Therapy. Final cultures indicate Staph Aureus. Patient without any complaints of numbness or weakness. Wound with persisting bulge and serous drainage on gauze per nursing. This may represent either a seroma or accumulation of blood above the fascial advancement flaps. Plan - agree with repeat blood cultures & Cefazolin x 4 weeks per ID - agree with MVI per Nutrition - Planning to remove skin clips on May 24. Patient may benefit from aspiration of suprafascial fluid collection prior to discharge. I will continue to evaluate and will perform if needed. no current need for MRI from Neurosurgery standpoint. Study was ordered on Wednesday when there was concern for progression of symptoms. Since this no longer remains a concern, MRI would not guide any current treatment decision making.
[2017-05-17] MEDS: CYCLOBENZAPRINE HCL 10 MG TABLET (FP) PO PRN (16:25)
[2017-05-17] MEDS: ACETAMINOPHEN 325 MG TABLET (FP) PO PRN (16:25)
--- NOTE | 2017-05-17 19:30 | PN ---
Progress Note, Physician History of Present Illness: Pt has been afebrile and is ambulating - Current Medication List Current Medications: Active Medications Acetaminophen (Tylenol -) 650 mg PO Q6H PRN PRN Reason: FEVER OR PAIN Last Admin: 05/17/17 16:25 Dose: 650 mg Atorvastatin Calcium (Lipitor -) 40 mg PO HS [facility] Last Admin: 05/16/17 22:08 Dose: 40 mg Cyclobenzaprine HCl (Flexeril -) 10 mg PO TID PRN PRN Reason: MUSCLE SPASMS Last Admin: 05/17/17 16:25 Dose: 10 mg Fenofibric Acid (Trilipix -) 45 mg PO DAILY [facility] Last Admin: 05/17/17 09:59 Dose: 45 mg Heparin Sodium (Porcine) (Heparin -) 5,000 unit SQ BID [facility] Last Admin: 05/17/17 09:59 Dose: 5,000 unit Cefazolin Sodium (Ancef 1gm Ivpb (Pre-Docked)) 50 mls @ 100 mls/hr IVPB Q8H-IV [facility] Last Admin: 05/17/17 17:08 Dose: 100 mls/hr Oxycodone HCl (Roxicodone -) 10 mg PO Q4H PRN PRN Reason: SEVERE PAIN Last Admin: 05/15/17 14:43 Dose: 10 mg Pantoprazole Sodium (Protonix -) 40 mg PO DAILY [facility] Last Admin: 05/17/17 09:59 Dose: 40 mg - Objective Vital Signs: Vital Signs Temperature 98.6 F 05/17/17 17:03 Pulse Rate 88 05/17/17 17:03 Respiratory Rate 20 05/17/17 17:03 Blood Pressure 128/86 05/17/17 17:03 O2 Sat by Pulse Oximetry (%) 98 05/17/17 09:00 Constitutional: Yes: No Distress HENT: Yes: WNL Neck: Yes: WNL, Supple Cardiovascular: Yes: WNL, Regular Rate and Rhythm Respiratory: Yes: WNL, Regular, CTA Bilaterally Gastrointestinal: Yes: WNL, Normal Bowel Sounds, Soft Musculoskeletal: Yes: Other ((+) dressing on LS spine w/ no leakage) Labs: CBC, BMP 05/16/17 13:00 05/16/17 13:00 INR, PTT INR 1.15 (0.82-1.09) H 05/10/17 20:50 Problem List - Problems (1) Fever Assessment/Plan: Due to bacteremia/cellulitis/abscess Wound culture/fluid culture and BC are (+) for MSSA Cont IV cefazolin Probably will need for 4 weeks as per ID BC remain negative Code(s): R50.9 - FEVER, UNSPECIFIED Qualifiers: Fever type: due to other condition Qualified Code(s): R50.81 - Fever presenting with conditions classified elsewhere (2) Status post lumbar laminectomy Assessment/Plan: Cont flexeril Cont PT Code(s): Z98.890 - OTHER SPECIFIED POSTPROCEDURAL STATES (3) GERD (gastroesophageal reflux disease) Assessment/Plan: Cont protonix Code(s): K21.9 - GASTRO-ESOPHAGEAL REFLUX DISEASE WITHOUT ESOPHAGITIS (4) HLD (hyperlipidemia) Assessment/Plan: Cont fenofibrate/lipitor Code(s): E78.5 - HYPERLIPIDEMIA, UNSPECIFIED
[2017-05-17] MEDS: ATORVASTATIN CA 40 MG TABLET (FP) PO SCH (21:54)
[2017-05-18] MEDS: CEFAZOLIN (PRE-DOCKED) 50 ML IVPB SCH ×3 (01:52→18:41)
[2017-05-18] MEDS: PANTOPRAZOLE 40 MG TABLET (FP) PO SCH (09:32)
[2017-05-18] MEDS: HEPARIN NA (PORCINE) 5,000 UNITS/ML 1ML VIAL SQ SCH ×2 (09:32→22:34)
[2017-05-18] MEDS: FENOFIBRIC ACID 45 MG CAP PO SCH (09:33)
--- NOTE | 2017-05-18 11:08 | PN ---
Progress Note, Physician History of Present Illness: stable no new issues - Current Medication List Current Medications: Active Medications Acetaminophen (Tylenol -) 650 mg PO Q6H PRN PRN Reason: FEVER OR PAIN Last Admin: 05/17/17 16:25 Dose: 650 mg Atorvastatin Calcium (Lipitor -) 40 mg PO HS [facility] Last Admin: 05/17/17 21:54 Dose: 40 mg Cyclobenzaprine HCl (Flexeril -) 10 mg PO TID PRN PRN Reason: MUSCLE SPASMS Last Admin: 05/17/17 16:25 Dose: 10 mg Fenofibric Acid (Trilipix -) 45 mg PO DAILY [facility] Last Admin: 05/18/17 09:33 Dose: 45 mg Heparin Sodium (Porcine) (Heparin -) 5,000 unit SQ BID [facility] Last Admin: 05/18/17 09:32 Dose: 5,000 unit Cefazolin Sodium (Ancef 1gm Ivpb (Pre-Docked)) 50 mls @ 100 mls/hr IVPB Q8H-IV [facility] Last Admin: 05/18/17 09:33 Dose: 100 mls/hr Pantoprazole Sodium (Protonix -) 40 mg PO DAILY [facility] Last Admin: 05/18/17 09:32 Dose: 40 mg - Objective Vital Signs: Vital Signs Temperature 99.3 F 05/18/17 06:11 Pulse Rate 77 05/18/17 06:11 Respiratory Rate 20 05/18/17 06:11 Blood Pressure 128/68 05/18/17 06:11 O2 Sat by Pulse Oximetry (%) 98 05/17/17 21:00 Constitutional: Yes: No Distress, Calm Cardiovascular: Yes: Regular Rate and Rhythm Respiratory: Yes: Regular, CTA Bilaterally Gastrointestinal: Yes: Normal Bowel Sounds, Soft Musculoskeletal: Yes: WNL Extremities: Yes: WNL Wound/Incision: Yes: Dressing Dry and Intact Neurological: Yes: Alert, Oriented Psychiatric: Yes: Alert, Oriented Labs: CBC, BMP 05/16/17 13:00 05/16/17 13:00 INR, PTT INR 1.15 (0.82-1.09) H 05/10/17 20:50 Assessment/Plan sepsis cellulitits of the back collection/abscess in the back/csf leak leukocytosis gm positive bacteremia (1) Fever Code(s): R50.9 - FEVER, UNSPECIFIED Qualifiers: Fever type: due to other condition Qualified Code(s): R50.81 - Fever presenting with conditions classified elsewhere (2) Status post lumbar laminectomy Code(s): Z98.890 - OTHER SPECIFIED POSTPROCEDURAL STATES (3) GERD (gastroesophageal reflux disease) Code(s): K21.9 - GASTRO-ESOPHAGEAL REFLUX DISEASE WITHOUT ESOPHAGITIS (4) HLD (hyperlipidemia) Code(s): E78.5 - HYPERLIPIDEMIA, UNSPECIFIED plan continue cefazolin repeat blood cx negative
[2017-05-18] MEDS: CYCLOBENZAPRINE HCL 10 MG TABLET (FP) PO PRN (15:21)
[2017-05-18] MEDS: ACETAMINOPHEN 325 MG TABLET (FP) PO PRN (15:21)
[2017-05-18] MEDS: ATORVASTATIN CA 40 MG TABLET (FP) PO SCH (22:34)
--- NOTE | 2017-05-18 23:53 | PN ---
Progress Note, Physician History of Present Illness: Pt has been afebrile and is ambulating - Current Medication List Current Medications: Active Medications Acetaminophen (Tylenol -) 650 mg PO Q6H PRN PRN Reason: FEVER OR PAIN Last Admin: 05/18/17 15:21 Dose: 650 mg Atorvastatin Calcium (Lipitor -) 40 mg PO HS [facility] Last Admin: 05/18/17 22:34 Dose: 40 mg Cyclobenzaprine HCl (Flexeril -) 10 mg PO TID PRN PRN Reason: MUSCLE SPASMS Last Admin: 05/18/17 15:21 Dose: 10 mg Fenofibric Acid (Trilipix -) 45 mg PO DAILY [facility] Last Admin: 05/18/17 09:33 Dose: 45 mg Heparin Sodium (Porcine) (Heparin -) 5,000 unit SQ BID [facility] Last Admin: 05/18/17 22:34 Dose: 5,000 unit Cefazolin Sodium (Ancef 1gm Ivpb (Pre-Docked)) 50 mls @ 100 mls/hr IVPB Q8H-IV [facility] Last Admin: 05/18/17 18:41 Dose: 100 mls/hr Pantoprazole Sodium (Protonix -) 40 mg PO DAILY [facility] Last Admin: 05/18/17 09:32 Dose: 40 mg - Objective Vital Signs: Vital Signs Temperature 98.4 F 05/18/17 10:00 Pulse Rate 105 H 05/18/17 10:00 Respiratory Rate 16 05/18/17 10:00 Blood Pressure 127/72 05/18/17 10:00 O2 Sat by Pulse Oximetry (%) 100 05/18/17 09:00 Constitutional: Yes: No Distress Neck: Yes: WNL, Supple Cardiovascular: Yes: WNL, Regular Rate and Rhythm Respiratory: Yes: WNL, Regular, CTA Bilaterally Gastrointestinal: Yes: WNL, Normal Bowel Sounds, Soft Musculoskeletal: Yes: Other ((+) surgical scar w/out oozing) Labs: CBC, BMP 05/16/17 13:00 05/16/17 13:00 INR, PTT INR 1.15 (0.82-1.09) H 05/10/17 20:50 Problem List - Problems (1) Fever Code(s): R50.9 - FEVER, UNSPECIFIED Qualifiers: Fever type: due to other condition Qualified Code(s): R50.81 - Fever presenting with conditions classified elsewhere (2) Status post lumbar laminectomy Code(s): Z98.890 - OTHER SPECIFIED POSTPROCEDURAL STATES (3) GERD (gastroesophageal reflux disease) Code(s): K21.9 - GASTRO-ESOPHAGEAL REFLUX DISEASE WITHOUT ESOPHAGITIS (4) HLD (hyperlipidemia) Code(s): E78.5 - HYPERLIPIDEMIA, UNSPECIFIED
[2017-05-19] MEDS: CEFAZOLIN (PRE-DOCKED) 50 ML IVPB SCH ×2 (01:48→09:51)
[2017-05-19 08:11] LABS: ALBUMIN 3.1 g/dl (3.4-5.0); ANION GAP 10 (8-16); CALCIUM 9.9 mg/dL (8.5-10.1); CO2 29 mmol/L (21-32); GLUCOSE,RANDOM 116 mg/dL (74-106)
[2017-05-19 08:16] LABS: ALK PHOS 60 U/L (45-117); BILIRUBIN,TOTAL 0.5 mg/dL (0.2-1.0); CREATININE 0.7 mg/dL (0.7-1.3); SGOT/AST 23 U/L (15-37); SGPT/ALT 36 U/L (12-78); TOT PROT 6.5 g/dl (6.4-8.2)
[2017-05-19 08:20] LABS: MCH 33.6 pg (25.7-33.7); MCHC 34.9 g/dl (32.0-35.9); MEAN CELL VOLUME 96.1 fl (80-96); PLATELET COUNT 411 K/MM3 (134-434); RDW 12.7 % (11.9-15.9); WHITE BLOOD COUNT 9.4 K/mm3 (4.0-10.0)
[2017-05-19] MEDS: HEPARIN NA (PORCINE) 5,000 UNITS/ML 1ML VIAL SQ SCH ×2 (09:51→21:20)
[2017-05-19] MEDS: PANTOPRAZOLE 40 MG TABLET (FP) PO SCH (09:51)
[2017-05-19] MEDS: FENOFIBRIC ACID 45 MG CAP PO SCH (09:53)
[2017-05-19] MEDS ORDERED: PT OWN MED DRAWER 7, Y5N ONE (09:53)
[2017-05-19 10:51] LABS: METAMYELOCYTE 1 % (0-2); PLATELET ESTIMATE ADEQUATE (NORMAL); SMUDGE CELLS MODERATE
[2017-05-19] MEDS ORDERED: oxyCODONE HCL 5 MG TABLET ONE (11:55)
[2017-05-19] MEDS ORDERED: oxyCODONE HCL 5 MG TABLET PO PRN (11:57)
[2017-05-19] MEDS: ACETAMINOPHEN 325 MG TABLET (FP) PO PRN (11:57)
[2017-05-19] MEDS: oxyCODONE HCL 5 MG TABLET PO PRN (11:59)
--- NOTE | 2017-05-19 15:02 | PN ---
Progress Note, Physician History of Present Illness: doing well no new issues some back pain at the operated site - Current Medication List Current Medications: Active Medications Acetaminophen (Tylenol -) 650 mg PO Q6H PRN PRN Reason: FEVER OR PAIN Last Admin: 05/19/17 11:57 Dose: 650 mg Atorvastatin Calcium (Lipitor -) 40 mg PO HS [facility] Last Admin: 05/18/17 22:34 Dose: 40 mg Cyclobenzaprine HCl (Flexeril -) 10 mg PO TID PRN PRN Reason: MUSCLE SPASMS Last Admin: 05/18/17 15:21 Dose: 10 mg Fenofibric Acid (Trilipix -) 45 mg PO DAILY [facility] Last Admin: 05/19/17 09:53 Dose: 45 mg Heparin Sodium (Porcine) (Heparin -) 5,000 unit SQ BID [facility] Last Admin: 05/19/17 09:51 Dose: 5,000 unit Cefazolin Sodium 1 gm/ (Dextrose) 50 mls @ 100 mls/hr IVPB Q8H-IV [facility] Oxycodone HCl (Roxicodone -) 5 mg PO Q4H PRN Last Admin: 05/19/17 11:59 Dose: 5 mg Oxycodone HCl (Roxicodone -) 10 mg PO Q4H PRN Pantoprazole Sodium (Protonix -) 40 mg PO DAILY [facility] Last Admin: 05/19/17 09:51 Dose: 40 mg - Objective Vital Signs: Vital Signs Temperature 99.1 F 05/19/17 10:00 Pulse Rate 76 05/19/17 11:14 Respiratory Rate 16 05/19/17 10:00 Blood Pressure 122/63 05/19/17 10:00 O2 Sat by Pulse Oximetry (%) 98 05/19/17 11:14 Constitutional: Yes: No Distress, Calm Cardiovascular: Yes: Regular Rate and Rhythm Respiratory: Yes: Regular, CTA Bilaterally Gastrointestinal: Yes: Normal Bowel Sounds, Soft Musculoskeletal: Yes: Back Pain Extremities: Yes: WNL Wound/Incision: Yes: Dressing Dry and Intact Neurological: Yes: Alert, Oriented Psychiatric: Yes: Alert, Oriented Labs: CBC, BMP 05/19/17 06:10 05/19/17 06:10 INR, PTT INR 1.15 (0.82-1.09) H 05/10/17 20:50 Assessment/Plan sepsis cellulitits of the back collection/abscess in the back/csf leak leukocytosis gm positive bacteremia (1) Fever Code(s): R50.9 - FEVER, UNSPECIFIED Qualifiers: Fever type: due to other condition Qualified Code(s): R50.81 - Fever presenting with conditions classified elsewhere (2) Status post lumbar laminectomy Code(s): Z98.890 - OTHER SPECIFIED POSTPROCEDURAL STATES (3) GERD (gastroesophageal reflux disease) Code(s): K21.9 - GASTRO-ESOPHAGEAL REFLUX DISEASE WITHOUT ESOPHAGITIS (4) HLD (hyperlipidemia) Code(s): E78.5 - HYPERLIPIDEMIA, UNSPECIFIED plan continue abx continue current mgmt
[2017-05-19] MEDS: CEFAZOLIN 1 GM in DEXTROSE 5%-WATER - 50 ML IVPB SCH (18:32)
--- NOTE | 2017-05-19 19:10 | PN ---
Progress Note (short form) - Note Progress Note: Patient remains stable and was ambulating in [place] when I arrived to the [facility]. He remains afebrile and the recent blood cultures are both negative after 48 hours. He has some minimal drainage on his dressing and a persisting fluid collection. I plan to aspirate the fluid collection on and agree with potential discharge on Wednesday with current antibiotic plan per Dr. Wilkerson. I will see the patient WednesdayMay 24 at 10 AM in my office to remove the skin clips. All questions answered. The patient is happy and feels that his preoperative symptoms are significantly better.
[2017-05-19] MEDS: ATORVASTATIN CA 40 MG TABLET (FP) PO SCH (21:20)
--- NOTE | 2017-05-19 21:37 | PN ---
Progress Note, Physician History of Present Illness: Pt w/ slight swelling at surgical site No erythema - Current Medication List Current Medications: Active Medications Acetaminophen (Tylenol -) 650 mg PO Q6H PRN PRN Reason: FEVER OR PAIN Last Admin: 05/19/17 11:57 Dose: 650 mg Atorvastatin Calcium (Lipitor -) 40 mg PO HS [facility] Last Admin: 05/19/17 21:20 Dose: 40 mg Cyclobenzaprine HCl (Flexeril -) 10 mg PO TID PRN PRN Reason: MUSCLE SPASMS Last Admin: 05/18/17 15:21 Dose: 10 mg Fenofibric Acid (Trilipix -) 45 mg PO DAILY [facility] Last Admin: 05/19/17 09:53 Dose: 45 mg Heparin Sodium (Porcine) (Heparin -) 5,000 unit SQ BID [facility] Last Admin: 05/19/17 21:20 Dose: 5,000 unit Cefazolin Sodium 1 gm/ (Dextrose) 50 mls @ 100 mls/hr IVPB Q8H-IV [facility] Last Admin: 05/19/17 18:32 Dose: 100 mls/hr Oxycodone HCl (Roxicodone -) 5 mg PO Q4H PRN Last Admin: 05/19/17 11:59 Dose: 5 mg Oxycodone HCl (Roxicodone -) 10 mg PO Q4H PRN Last Admin: 05/19/17 21:20 Dose: 10 mg Pantoprazole Sodium (Protonix -) 40 mg PO DAILY [facility] Last Admin: 05/19/17 09:51 Dose: 40 mg - Objective Vital Signs: Vital Signs Temperature 98 F 05/19/17 18:21 Pulse Rate 90 05/19/17 18:21 Respiratory Rate 20 05/19/17 18:21 Blood Pressure 120/76 05/19/17 18:21 O2 Sat by Pulse Oximetry (%) 98 05/19/17 11:14 Constitutional: Yes: No Distress Neck: Yes: WNL, Supple Cardiovascular: Yes: WNL, Regular Rate and Rhythm Respiratory: Yes: WNL, Regular, CTA Bilaterally Gastrointestinal: Yes: WNL, Normal Bowel Sounds Musculoskeletal: Yes: Other ((+) slight swelling on rt side of surgical site) Labs: CBC, BMP 05/19/17 06:10 05/19/17 06:10 INR, PTT INR 1.15 (0.82-1.09) H 05/10/17 20:50 Problem List - Problems (1) Fever Assessment/Plan: Due to bacteremia/cellulitis/abscess Wound culture/fluid culture and BC are (+) for MSSA Cont IV cefazolin Repeat BC remain negative Probable drainage of fluid collection in am by NSG Code(s): R50.9 - FEVER, UNSPECIFIED Qualifiers: Fever type: due to other condition Qualified Code(s): R50.81 - Fever presenting with conditions classified elsewhere (2) Status post lumbar laminectomy Assessment/Plan: Cont flexeril Pt is ambulating independently Code(s): Z98.890 - OTHER SPECIFIED POSTPROCEDURAL STATES (3) GERD (gastroesophageal reflux disease) Code(s): K21.9 - GASTRO-ESOPHAGEAL REFLUX DISEASE WITHOUT ESOPHAGITIS (4) HLD (hyperlipidemia) Code(s): E78.5 - HYPERLIPIDEMIA, UNSPECIFIED
[2017-05-20] MEDS: CEFAZOLIN 1 GM in DEXTROSE 5%-WATER - 50 ML IVPB SCH ×3 (02:06→18:21)
[2017-05-20] MEDS ORDERED: DEXTROSE 5%-WATER - 50 ML IVPB ONE ×2 (10:07→18:15)
[2017-05-20] MEDS ORDERED: ceFAZolin SODIUM 1 GM VIAL ONE ×2 (10:07→18:14)
[2017-05-20] MEDS ORDERED: PT OWN MED DRAWER 7, Y5N ONE (10:24)
[2017-05-20] MEDS: FENOFIBRIC ACID 45 MG CAP PO SCH (10:26)
[2017-05-20] MEDS: PANTOPRAZOLE 40 MG TABLET (FP) PO SCH (10:27)
[2017-05-20] MEDS: HEPARIN NA (PORCINE) 5,000 UNITS/ML 1ML VIAL SQ SCH ×2 (10:27→21:15)
--- NOTE | 2017-05-20 13:44 | PN ---
Progress Note (short form) - Note Progress Note: Neurosurgery Procedure Note Patient with persisting drainage at caudal end of incision with a large fluid collection which is somewhat warm and erythematous. After informed consent and time out, lumbar incision was exposed and prepped and draped in usual fashion. Using sterile technique, an angiocatheter was introduced and 75 cc of dark reddish fluid was aspirated. Visual impression was that this was primarily old hematoma rather than CSF or pus. Samples sent for Microbiology and Gram's Stain. Patient tolerated the procedure well and a sterile dressing was applied. Dermabond was used to augment the caudal pinpoint opening in the incision. I will follow the culture results and am willing to participate in discharge planning.
--- NOTE | 2017-05-20 16:22 | PN ---
Progress Note, Physician Chief Complaint: swelling had increased wound aspirated fluid send for micro patient feels well - Current Medication List Current Medications: Active Medications Acetaminophen (Tylenol -) 650 mg PO Q6H PRN PRN Reason: FEVER OR PAIN Last Admin: 05/19/17 11:57 Dose: 650 mg Atorvastatin Calcium (Lipitor -) 40 mg PO HS [facility] Last Admin: 05/19/17 21:20 Dose: 40 mg Cyclobenzaprine HCl (Flexeril -) 10 mg PO TID PRN PRN Reason: MUSCLE SPASMS Last Admin: 05/18/17 15:21 Dose: 10 mg Fenofibric Acid (Trilipix -) 45 mg PO DAILY [facility] Last Admin: 05/20/17 10:26 Dose: 45 mg Heparin Sodium (Porcine) (Heparin -) 5,000 unit SQ BID [facility] Last Admin: 05/20/17 10:27 Dose: 5,000 unit Cefazolin Sodium 1 gm/ (Dextrose) 50 mls @ 100 mls/hr IVPB Q8H-IV [facility] Last Admin: 05/20/17 10:27 Dose: 100 mls/hr Oxycodone HCl (Roxicodone -) 5 mg PO Q4H PRN Last Admin: 05/19/17 11:59 Dose: 5 mg Oxycodone HCl (Roxicodone -) 10 mg PO Q4H PRN Last Admin: 05/19/17 21:20 Dose: 10 mg Pantoprazole Sodium (Protonix -) 40 mg PO DAILY [facility] Last Admin: 05/20/17 10:27 Dose: 40 mg - Objective Vital Signs: Vital Signs Temperature 98.8 F 05/20/17 14:55 Pulse Rate 87 05/20/17 14:55 Respiratory Rate 18 05/20/17 14:55 Blood Pressure 121/60 05/20/17 14:55 O2 Sat by Pulse Oximetry (%) 98 05/19/17 21:00 Constitutional: Yes: No Distress, Calm Cardiovascular: Yes: Regular Rate and Rhythm Respiratory: Yes: Regular, CTA Bilaterally Gastrointestinal: Yes: Normal Bowel Sounds, Soft Musculoskeletal: Yes: WNL Extremities: Yes: WNL Wound/Incision: Yes: Dressing Dry and Intact Neurological: Yes: Alert, Oriented Psychiatric: Yes: Alert Labs: CBC, BMP 05/19/17 06:10 05/19/17 06:10 INR, PTT INR 1.15 (0.82-1.09) H 05/10/17 20:50 Assessment/Plan sepsis cellulitits of the back collection/abscess in the back/csf leak leukocytosis gm positive bacteremia (1) Fever Code(s): R50.9 - FEVER, UNSPECIFIED Qualifiers: Fever type: due to other condition Qualified Code(s): R50.81 - Fever presenting with conditions classified elsewhere (2) Status post lumbar laminectomy Code(s): Z98.890 - OTHER SPECIFIED POSTPROCEDURAL STATES (3) GERD (gastroesophageal reflux disease) Code(s): K21.9 - GASTRO-ESOPHAGEAL REFLUX DISEASE WITHOUT ESOPHAGITIS (4) HLD (hyperlipidemia) Code(s): E78.5 - HYPERLIPIDEMIA, UNSPECIFIED plan continue abx continue current mgmt await for microbiology on repeat aspirated fluid
--- NOTE | 2017-05-20 20:52 | PN ---
Progress Note, Physician History of Present Illness: Pt w/ slight swelling at surgical site wc was aspirated today - Current Medication List Current Medications: Active Medications Acetaminophen (Tylenol -) 650 mg PO Q6H PRN PRN Reason: FEVER OR PAIN Last Admin: 05/19/17 11:57 Dose: 650 mg Atorvastatin Calcium (Lipitor -) 40 mg PO HS [facility] Last Admin: 05/19/17 21:20 Dose: 40 mg Cyclobenzaprine HCl (Flexeril -) 10 mg PO TID PRN PRN Reason: MUSCLE SPASMS Last Admin: 05/18/17 15:21 Dose: 10 mg Fenofibric Acid (Trilipix -) 45 mg PO DAILY [facility] Last Admin: 05/20/17 10:26 Dose: 45 mg Heparin Sodium (Porcine) (Heparin -) 5,000 unit SQ BID [facility] Last Admin: 05/20/17 10:27 Dose: 5,000 unit Cefazolin Sodium 1 gm/ (Dextrose) 50 mls @ 100 mls/hr IVPB Q8H-IV [facility] Last Admin: 05/20/17 18:21 Dose: 100 mls/hr Oxycodone HCl (Roxicodone -) 5 mg PO Q4H PRN Last Admin: 05/19/17 11:59 Dose: 5 mg Oxycodone HCl (Roxicodone -) 10 mg PO Q4H PRN Last Admin: 05/19/17 21:20 Dose: 10 mg Pantoprazole Sodium (Protonix -) 40 mg PO DAILY [facility] Last Admin: 05/20/17 10:27 Dose: 40 mg - Objective Vital Signs: Vital Signs Temperature 98.7 F 05/20/17 16:15 Pulse Rate 87 05/20/17 16:15 Respiratory Rate 20 05/20/17 16:15 Blood Pressure 114/62 05/20/17 16:15 O2 Sat by Pulse Oximetry (%) 99 05/20/17 09:00 Constitutional: Yes: No Distress HENT: Yes: WNL, Atraumatic, Normocephalic Neck: Yes: WNL, Supple, Trachea Midline Cardiovascular: Yes: WNL, Regular Rate and Rhythm Respiratory: Yes: WNL, Regular, CTA Bilaterally Gastrointestinal: Yes: WNL, Normal Bowel Sounds Musculoskeletal: Yes: Other ((+) surgical incision sight w/ less swelling) Labs: CBC, BMP 05/19/17 06:10 05/19/17 06:10 INR, PTT INR 1.15 (0.82-1.09) H 05/10/17 20:50 Problem List - Problems (1) Fever Assessment/Plan: Due to bacteremia/cellulitis/abscess Wound culture/fluid culture and BC are (+) for MSSA Cont IV cefazolin Fluid aspirated from surgical site on LS spine Fluid sent for culture Code(s): R50.9 - FEVER, UNSPECIFIED Qualifiers: Fever type: due to other condition Qualified Code(s): R50.81 - Fever presenting with conditions classified elsewhere (2) Status post lumbar laminectomy Assessment/Plan: Cont flexeril Pt is ambulating independently Code(s): Z98.890 - OTHER SPECIFIED POSTPROCEDURAL STATES (3) GERD (gastroesophageal reflux disease) Assessment/Plan: Cont protonix Code(s): K21.9 - GASTRO-ESOPHAGEAL REFLUX DISEASE WITHOUT ESOPHAGITIS (4) HLD (hyperlipidemia) Code(s): E78.5 - HYPERLIPIDEMIA, UNSPECIFIED
[2017-05-20] MEDS: ATORVASTATIN CA 40 MG TABLET (FP) PO SCH (21:15)
[2017-05-20] MEDS: ACETAMINOPHEN 325 MG TABLET (FP) PO PRN (21:18)
[2017-05-20] MEDS: CYCLOBENZAPRINE HCL 10 MG TABLET (FP) PO PRN (21:18)
[2017-05-21] MEDS ORDERED: DEXTROSE 5%-WATER - 50 ML IVPB ONE ×3 (01:45→17:08)
[2017-05-21] MEDS ORDERED: ceFAZolin SODIUM 1 GM VIAL ONE ×3 (01:45→17:08)
[2017-05-21] MEDS: CEFAZOLIN 1 GM in DEXTROSE 5%-WATER - 50 ML IVPB SCH ×3 (01:57→17:43)
[2017-05-21 08:03] LABS: MCH 32.8 pg (25.7-33.7); MCHC 34.4 g/dl (32.0-35.9); MEAN CELL VOLUME 95.4 fl (80-96); MEAN PLT VOLUME 7.1 fl (7.5-11.1); PLATELET COUNT 452 K/MM3 (134-434); RDW 12.8 % (11.9-15.9)
[2017-05-21 08:30] LABS: ALBUMIN 3.2 g/dl (3.4-5.0); ANION GAP 10 (8-16); BILIRUBIN,TOTAL 0.3 mg/dL (0.2-1.0); CALCIUM 9.5 mg/dL (8.5-10.1); CO2 29 mmol/L (21-32); GLUCOSE,RANDOM 98 mg/dL (74-106); SGOT/AST 15 U/L (15-37); SGPT/ALT 29 U/L (12-78); TOT PROT 6.6 g/dl (6.4-8.2)
[2017-05-21 08:31] LABS: ALK PHOS 59 U/L (45-117); CREATININE 0.6 mg/dL (0.7-1.3)
[2017-05-21] MEDS ORDERED: PT OWN MED DRAWER 7, Y5N ONE (09:56)
[2017-05-21] MEDS: PANTOPRAZOLE 40 MG TABLET (FP) PO SCH (10:08)
[2017-05-21] MEDS: FENOFIBRIC ACID 45 MG CAP PO SCH (10:08)
[2017-05-21 10:38] LABS: PLATELET ESTIMATE ADEQUATE (NORMAL)
--- NOTE | 2017-05-21 10:54 | PN ---
Physical Exam: SUBJECTIVE: Patient seen and examined in chair at bedside. Denies c/o at present. OBJECTIVE: Vital Signs 3 Period Temp Pulse Resp BP Sys/Ruiz Pulse Ox Last 24 Hr 98.7 F-98.8 F 61-87 18-20 110-121/60-62 99 GENERAL: The patient is awake, alert, and fully oriented, in no acute distress. NECK: Trachea midline, full range of motion, supple. LUNGS: Breath sounds equal, clear to auscultation bilaterally, no wheezes, no crackles, no accessory muscle use. HEART: Regular rate and rhythm, S1, S2 without murmur, rub or gallop. ABDOMEN: Soft, nontender, nondistended, normoactive bowel sounds, no guarding, no rebound, no hepatosplenomegaly, no masses. EXTREMITIES: 2+ pulses, warm, well-perfused, no edema. NEUROLOGICAL: Cranial nerves II through XII grossly intact. Normal speech, gait steady. PSYCH: Normal mood, normal affect. SKIN: Warm, dry, normal turgor, no rashes or lesions noted. Soft mobile mass to right paraspinous lumbar area. No erythema or warmth present. Dry sterile dressing in place which is clean, dry and intact. Laboratory Results - last 24 hr 3 05/21/17 05/21/17 06:30 06:30 WBC 10.0 RBC 3.67 L Hgb 12.0 Hct 35.0 L MCV 95.4 MCHC 34.4 RDW 12.8 Plt Count 452 H MPV 7.1 L Neutrophils % 55.0 Lymphocytes % 34.0 Monocytes % 7.0 Eosinophils % 1.0 Band Neutrophils 1.0 Myelocytes 2 D Differential Comment Manual diff done Platelet Estimate Adequate Sodium 140 Potassium 4.1 Chloride 101 Carbon Dioxide 29 Anion Gap 10 BUN 19 H Creatinine 0.6 L Creat Clearance w eGFR > 60 Random Glucose 98 Calcium 9.5 Total Bilirubin 0.3 D AST 15 D ALT 29 Alkaline Phosphatase 59 Total Protein 6.6 Albumin 3.2 L Active Medications 3 Generic Name Dose Route Start Last Admin Trade Name Freq PRN Reason Stop Dose Admin Acetaminophen 650 mg 05/13/17 19:12 05/20/17 21:18 Tylenol - PO 650 mg Q6H PRN Administration FEVER OR PAIN Atorvastatin Calcium 40 mg 05/13/17 22:00 05/20/17 21:15 Lipitor - PO 40 mg HS [facility] Administration Cyclobenzaprine HCl 10 mg 05/13/17 19:12 05/20/17 21:18 Flexeril - PO 10 mg TID PRN Administration MUSCLE SPASMS Fenofibric Acid 45 mg 05/14/17 10:00 05/21/17 10:08 Trilipix - PO 45 mg DAILY [facility] Administration Cefazolin Sodium 1 gm/ 50 mls @ 100 mls/hr 05/19/17 10:53 05/21/17 10:08 Dextrose IVPB 100 mls/hr Q8H-IV [facility] Administration Oxycodone HCl 5 mg 05/19/17 11:56 05/19/17 11:59 Roxicodone - PO 5 mg Q4H PRN Administration Oxycodone HCl 10 mg 05/19/17 11:57 05/19/17 21:20 Roxicodone - PO 10 mg Q4H PRN Administration Pantoprazole Sodium 40 mg 05/14/17 10:00 05/21/17 10:08 Protonix - PO 40 mg DAILY [facility] Administration Microbiology 05/17/17 07:22 Blood - Peripheral Venous Blood Culture - Preliminary NO GROWTH OBTAINED AFTER 96 HOURS, INCUBATION TO CONTINUE FOR 1 DAYS. 05/17/17 07:22 Blood - Peripheral Venous Blood Culture - Preliminary NO GROWTH OBTAINED AFTER 96 HOURS, INCUBATION TO CONTINUE FOR 1 DAYS. 05/13/17 17:00 Aspirate Gram Stain - Final 05/13/17 17:00 Aspirate Body Fluid Culture - Final Staphylococcus Aureus 05/13/17 17:00 Aspirate Anaerobic Culture - Final NO ANAEROBES WERE ISOLATED 05/13/17 17:00 Back Gram Stain - Final 05/13/17 17:00 Back Wound Culture - Final Staphylococcus Aureus 05/13/17 18:21 Aspirate Gram Stain - Final 05/13/17 18:21 Aspirate Body Fluid Culture - Final Staphylococcus Aureus 05/13/17 18:21 Aspirate Anaerobic Culture - Final NO ANAEROBES WERE ISOLATED 05/13/17 17:00 Drainage (Swab) Gram Stain - Final 05/13/17 17:00 Drainage (Swab) Wound Culture - Final Staphylococcus Aureus 05/12/17 21:15 Back Gram Stain - Final 05/12/17 21:15 Back Wound Culture - Final Staphylococcus Aureus 05/10/17 20:50 Blood - Peripheral Venous Blood Culture - Final Staphylococcus Aureus 05/10/17 20:50 Blood - Peripheral Venous Blood Culture - Final Staphylococcus Aureus 05/11/17 11:50 Urine - Urine Clean Catch Urine Culture - Final NO GROWTH OBTAINED ASSESSMENT/PLAN: A: 61 yo man with fluid collection at site of lumbar laminectomy. No s/s infection at this time. Aspirate pending. P: 1. Fever - Remains afebrile - Trend fever curve - WBC 10 - Trend WBC - Blood and aspirate cx positive for MSSA - Repeat aspirate cx pending - Continue Cefazolin 1g q8h - APAP prn - Appreciate ID recs 2. Lumbar laminectomy - pain management with Oxycodone and Flexoril - OOB - Incentive spirometry - Cough and deep breathing 3. HLD - Lipitor 40mg hs 4. F/E/N - Regular diet - Replete prn 5. PPX - OOB Dispo- Will d/c home when repeat cx resulted and cleared by ID Code Status- FULL CODE Visit type - Emergency Visit Emergency Visit: Yes ED Registration Date: 05/11/17 Care time: The patient presented to the Emergency Department on the above date and was hospitalized for further evaluation of their emergent condition. - New Patient This patient is new to me today: Yes Date on this admission: 05/21/17 - Critical Care Critical Care patient: No
--- NOTE | 2017-05-21 14:17 | PN ---
Progress Note, Physician History of Present Illness: stable no new events - Current Medication List Current Medications: Active Medications Acetaminophen (Tylenol -) 650 mg PO Q6H PRN PRN Reason: FEVER OR PAIN Last Admin: 05/20/17 21:18 Dose: 650 mg Atorvastatin Calcium (Lipitor -) 40 mg PO HS [facility] Last Admin: 05/20/17 21:15 Dose: 40 mg Cyclobenzaprine HCl (Flexeril -) 10 mg PO TID PRN PRN Reason: MUSCLE SPASMS Last Admin: 05/20/17 21:18 Dose: 10 mg Fenofibric Acid (Trilipix -) 45 mg PO DAILY [facility] Last Admin: 05/21/17 10:08 Dose: 45 mg Cefazolin Sodium 1 gm/ (Dextrose) 50 mls @ 100 mls/hr IVPB Q8H-IV [facility] Last Admin: 05/21/17 10:08 Dose: 100 mls/hr Oxycodone HCl (Roxicodone -) 5 mg PO Q4H PRN Last Admin: 05/19/17 11:59 Dose: 5 mg Oxycodone HCl (Roxicodone -) 10 mg PO Q4H PRN Last Admin: 05/19/17 21:20 Dose: 10 mg Pantoprazole Sodium (Protonix -) 40 mg PO DAILY [facility] Last Admin: 05/21/17 10:08 Dose: 40 mg - Objective Vital Signs: Vital Signs Temperature 98.3 F 05/21/17 09:00 Pulse Rate 100 H 05/21/17 09:00 Respiratory Rate 20 05/21/17 09:00 Blood Pressure 123/59 05/21/17 09:00 O2 Sat by Pulse Oximetry (%) 97 05/21/17 09:00 Constitutional: Yes: No Distress, Calm Cardiovascular: Yes: Regular Rate and Rhythm Respiratory: Yes: Regular, CTA Bilaterally Gastrointestinal: Yes: Normal Bowel Sounds, Soft Musculoskeletal: Yes: Back Pain Extremities: Yes: WNL Wound/Incision: Yes: Dressing Dry and Intact Neurological: Yes: Alert, Oriented Psychiatric: Yes: Alert, Oriented Labs: CBC, BMP 05/21/17 06:30 05/21/17 06:30 INR, PTT INR 1.15 (0.82-1.09) H 05/10/17 20:50 Assessment/Plan sepsis cellulitits of the back collection/abscess in the back/csf leak leukocytosis gm positive bacteremia (1) Fever Code(s): R50.9 - FEVER, UNSPECIFIED Qualifiers: Fever type: due to other condition Qualified Code(s): R50.81 - Fever presenting with conditions classified elsewhere (2) Status post lumbar laminectomy Code(s): Z98.890 - OTHER SPECIFIED POSTPROCEDURAL STATES (3) GERD (gastroesophageal reflux disease) Code(s): K21.9 - GASTRO-ESOPHAGEAL REFLUX DISEASE WITHOUT ESOPHAGITIS (4) HLD (hyperlipidemia) Code(s): E78.5 - HYPERLIPIDEMIA, UNSPECIFIED plan continue abx continue current mgmt repeat aspirated fluid cx pending
[2017-05-21] MEDS: ACETAMINOPHEN 325 MG TABLET (FP) PO PRN ×2 (15:05→21:37)
[2017-05-21] MEDS: oxyCODONE HCL 5 MG TABLET PO PRN (15:08)
[2017-05-21] MEDS: CYCLOBENZAPRINE HCL 10 MG TABLET (FP) PO PRN (21:37)
[2017-05-21] MEDS: ATORVASTATIN CA 40 MG TABLET (FP) PO SCH (21:37)
--- NOTE | 2017-05-21 21:57 | PN ---
Progress Note (short form) - Note Progress Note: patient seen and examined. Patient is afebrile with white blood count of 10. Cultures from wound negative to date and Gram stain is negative for organisms and white cells. The patient does not have any headache and his dressing is clean dry and intact. There is a re-accumulation of fluid under the skin, however this does not appear to require additional drainage at this time. I had an extensive discussion with the patient regarding his course of care. If his final blood cultures are negative and the thania won't ask for it is negative and he remains afebrile without a white blood count and the wound is not leaking for 48 hours we can consider discharge to complete his antibiotic course. I explained to patient that additional aspiration or warned revision to repair pseudomeningocele may be required in the future, however if the patient is afebrile and not leaking this may be deferred. I explained that once his infection is healed and once his infection has cleared and once his wound has healed and he remains neurologically well the remaining issue of pseudomeningocele can be addressed with fewer restrictions on repair options. The patients relative is a neuroradiologist who has been actively advising the patient and his family at the patient's request I discussed the course of care with this physician and he is completely in agreement with our management and is very appreciative of our efforts. All questions were answered. I will continue to follow the patient with the team.
[2017-05-22] MEDS: CEFAZOLIN 1 GM in DEXTROSE 5%-WATER - 50 ML IVPB SCH ×3 (02:57→18:55)
[2017-05-22 07:40] LABS: MCH 33.1 pg (25.7-33.7); MCHC 34.8 g/dl (32.0-35.9); MEAN PLT VOLUME 6.8 fl (7.5-11.1); PLATELET COUNT 411 K/MM3 (134-434); RDW 12.8 % (11.9-15.9); WHITE BLOOD COUNT 8.5 K/mm3 (4.0-10.0)
[2017-05-22 07:57] LABS: ALBUMIN 3.2 g/dl (3.4-5.0); ANION GAP 9 (8-16); CALCIUM 9.5 mg/dL (8.5-10.1); CO2 30 mmol/L (21-32); GLUCOSE,RANDOM 102 mg/dL (74-106); SGOT/AST 17 U/L (15-37); SGPT/ALT 27 U/L (12-78)
[2017-05-22 07:59] LABS: ALK PHOS 58 U/L (45-117); BILIRUBIN,TOTAL 0.4 mg/dL (0.2-1.0); CREATININE 0.7 mg/dL (0.7-1.3); TOT PROT 6.5 g/dl (6.4-8.2)
[2017-05-22] MEDS: PANTOPRAZOLE 40 MG TABLET (FP) PO SCH (09:41)
[2017-05-22] MEDS: FENOFIBRIC ACID 45 MG CAP PO SCH (09:42)
[2017-05-22] MEDS ORDERED: DEXTROSE 5%-WATER - 50 ML IVPB ONE ×2 (11:10→14:29)
[2017-05-22] MEDS ORDERED: ceFAZolin SODIUM 1 GM VIAL ONE ×2 (11:10→14:29)
--- NOTE | 2017-05-22 11:10 | PN ---
Progress Note, Physician History of Present Illness: patient no complaints dressing removed wound looked at looks like the wound is recollecting - Current Medication List Current Medications: Active Medications Acetaminophen (Tylenol -) 650 mg PO Q6H PRN PRN Reason: FEVER OR PAIN Last Admin: 05/21/17 21:37 Dose: 650 mg Atorvastatin Calcium (Lipitor -) 40 mg PO HS [facility] Last Admin: 05/21/17 21:37 Dose: 40 mg Cyclobenzaprine HCl (Flexeril -) 10 mg PO TID PRN PRN Reason: MUSCLE SPASMS Last Admin: 05/21/17 21:37 Dose: 10 mg Fenofibric Acid (Trilipix -) 45 mg PO DAILY [facility] Last Admin: 05/22/17 09:42 Dose: 45 mg Cefazolin Sodium 1 gm/ (Dextrose) 50 mls @ 100 mls/hr IVPB Q8H-IV [facility] Last Admin: 05/22/17 02:57 Dose: 100 mls/hr Oxycodone HCl (Roxicodone -) 5 mg PO Q4H PRN Last Admin: 05/21/17 15:08 Dose: 5 mg Oxycodone HCl (Roxicodone -) 10 mg PO Q4H PRN Last Admin: 05/19/17 21:20 Dose: 10 mg Pantoprazole Sodium (Protonix -) 40 mg PO DAILY [facility] Last Admin: 05/22/17 09:41 Dose: 40 mg - Objective Vital Signs: Vital Signs Temperature 98.5 F 05/22/17 09:13 Pulse Rate 89 05/22/17 09:13 Respiratory Rate 16 05/22/17 09:13 Blood Pressure 137/55 05/22/17 09:13 O2 Sat by Pulse Oximetry (%) 97 05/21/17 21:00 Constitutional: Yes: No Distress, Calm Cardiovascular: Yes: Regular Rate and Rhythm Respiratory: Yes: Regular, CTA Bilaterally Gastrointestinal: Yes: Normal Bowel Sounds, Soft Musculoskeletal: Yes: WNL Extremities: Yes: WNL Wound/Incision: Yes: Other (size of the wound ahs increased again,probably collection has re accumalated neurosurgery following) Neurological: Yes: Alert, Oriented Psychiatric: Yes: Alert Labs: CBC, BMP 05/22/17 06:00 05/22/17 06:00 INR, PTT INR 1.15 (0.82-1.09) H 05/10/17 20:50 Assessment/Plan sepsis cellulitits of the back collection/abscess in the back/csf leak leukocytosis gm positive bacteremia (1) Fever Code(s): R50.9 - FEVER, UNSPECIFIED Qualifiers: Fever type: due to other condition Qualified Code(s): R50.81 - Fever presenting with conditions classified elsewhere (2) Status post lumbar laminectomy Code(s): Z98.890 - OTHER SPECIFIED POSTPROCEDURAL STATES (3) GERD (gastroesophageal reflux disease) Code(s): K21.9 - GASTRO-ESOPHAGEAL REFLUX DISEASE WITHOUT ESOPHAGITIS (4) HLD (hyperlipidemia) Code(s): E78.5 - HYPERLIPIDEMIA, UNSPECIFIED plan continue abx continue current mgmt repeat aspirated fluid cx pending continue to monitor the wound might need re aspiration
[2017-05-22 13:31] LABS: PLATELET ESTIMATE ADEQUATE (NORMAL)
--- NOTE | 2017-05-22 21:16 | PN ---
Progress Note, Physician - Current Medication List Current Medications: Active Medications Acetaminophen (Tylenol -) 650 mg PO Q6H PRN PRN Reason: FEVER OR PAIN Last Admin: 05/21/17 21:37 Dose: 650 mg Atorvastatin Calcium (Lipitor -) 40 mg PO HS [facility] Last Admin: 05/21/17 21:37 Dose: 40 mg Cyclobenzaprine HCl (Flexeril -) 10 mg PO TID PRN PRN Reason: MUSCLE SPASMS Last Admin: 05/21/17 21:37 Dose: 10 mg Fenofibric Acid (Trilipix -) 45 mg PO DAILY [facility] Last Admin: 05/22/17 09:42 Dose: 45 mg Cefazolin Sodium 1 gm/ (Dextrose) 50 mls @ 100 mls/hr IVPB Q8H-IV [facility] Last Admin: 05/22/17 18:55 Dose: 100 mls/hr Oxycodone HCl (Roxicodone -) 5 mg PO Q4H PRN Last Admin: 05/21/17 15:08 Dose: 5 mg Oxycodone HCl (Roxicodone -) 10 mg PO Q4H PRN Last Admin: 05/19/17 21:20 Dose: 10 mg Pantoprazole Sodium (Protonix -) 40 mg PO DAILY [facility] Last Admin: 05/22/17 09:41 Dose: 40 mg - Objective Vital Signs: Vital Signs Temperature 98.8 F 05/22/17 17:10 Pulse Rate 87 05/22/17 17:10 Respiratory Rate 20 05/22/17 17:10 Blood Pressure 113/64 05/22/17 17:10 O2 Sat by Pulse Oximetry (%) 100 05/22/17 09:00 Labs: CBC, BMP 05/22/17 06:00 05/22/17 06:00 INR, PTT INR 1.15 (0.82-1.09) H 05/10/17 20:50 Problem List - Problems (1) Fever Code(s): R50.9 - FEVER, UNSPECIFIED Qualifiers: Fever type: due to other condition Qualified Code(s): R50.81 - Fever presenting with conditions classified elsewhere (2) Status post lumbar laminectomy Code(s): Z98.890 - OTHER SPECIFIED POSTPROCEDURAL STATES (3) GERD (gastroesophageal reflux disease) Code(s): K21.9 - GASTRO-ESOPHAGEAL REFLUX DISEASE WITHOUT ESOPHAGITIS (4) HLD (hyperlipidemia) Code(s): E78.5 - HYPERLIPIDEMIA, UNSPECIFIED
[2017-05-22] MEDS: CYCLOBENZAPRINE HCL 10 MG TABLET (FP) PO PRN (22:10)
[2017-05-22] MEDS: ATORVASTATIN CA 40 MG TABLET (FP) PO SCH (22:11)
[2017-05-22] MEDS: ACETAMINOPHEN 325 MG TABLET (FP) PO PRN (22:11)
[2017-05-23] MEDS ORDERED: ceFAZolin SODIUM 1 GM VIAL ONE ×3 (02:32→17:31)
[2017-05-23] MEDS: CEFAZOLIN 1 GM in DEXTROSE 5%-WATER - 50 ML IVPB SCH ×3 (02:50→18:43)
[2017-05-23] MEDS ORDERED: DEXTROSE 5%-WATER - 50 ML IVPB ONE ×2 (10:00→17:32)
[2017-05-23] MEDS: PANTOPRAZOLE 40 MG TABLET (FP) PO SCH (10:09)
[2017-05-23] MEDS: FENOFIBRIC ACID 45 MG CAP PO SCH (10:09)
--- NOTE | 2017-05-23 13:03 | PN ---
Progress Note, Physician History of Present Illness: patient stable wound dressing removed wound looked at increased in size - Current Medication List Current Medications: Active Medications Acetaminophen (Tylenol -) 650 mg PO Q6H PRN PRN Reason: FEVER OR PAIN Last Admin: 05/22/17 22:11 Dose: 650 mg Atorvastatin Calcium (Lipitor -) 40 mg PO HS [facility] Last Admin: 05/22/17 22:11 Dose: 40 mg Cyclobenzaprine HCl (Flexeril -) 10 mg PO TID PRN PRN Reason: MUSCLE SPASMS Last Admin: 05/22/17 22:10 Dose: 10 mg Fenofibric Acid (Trilipix -) 45 mg PO DAILY [facility] Last Admin: 05/23/17 10:09 Dose: 45 mg Cefazolin Sodium 1 gm/ (Dextrose) 50 mls @ 100 mls/hr IVPB Q8H-IV [facility] Last Admin: 05/23/17 10:09 Dose: 100 mls/hr Oxycodone HCl (Roxicodone -) 5 mg PO Q4H PRN Last Admin: 05/21/17 15:08 Dose: 5 mg Oxycodone HCl (Roxicodone -) 10 mg PO Q4H PRN Last Admin: 05/19/17 21:20 Dose: 10 mg Pantoprazole Sodium (Protonix -) 40 mg PO DAILY [facility] Last Admin: 05/23/17 10:09 Dose: 40 mg - Objective Vital Signs: Vital Signs Temperature 98.1 F 05/23/17 06:56 Pulse Rate 78 05/23/17 11:27 Respiratory Rate 20 05/23/17 06:56 Blood Pressure 104/58 05/23/17 06:56 O2 Sat by Pulse Oximetry (%) 100 05/23/17 11:27 Constitutional: Yes: No Distress, Calm Cardiovascular: Yes: Regular Rate and Rhythm Respiratory: Yes: Regular, CTA Bilaterally Gastrointestinal: Yes: Normal Bowel Sounds, Soft Musculoskeletal: Yes: WNL Extremities: Yes: WNL Wound/Incision: Yes: Clean/Dry, Other (patient wound sizr has increased increased collection in the wound) Neurological: Yes: Alert, Oriented Psychiatric: Yes: Alert Labs: CBC, BMP 05/22/17 06:00 05/22/17 06:00 INR, PTT INR 1.15 (0.82-1.09) H 05/10/17 20:50 Assessment/Plan sepsis cellulitits of the back collection/abscess in the back/csf leak leukocytosis gm positive bacteremia (1) Fever Code(s): R50.9 - FEVER, UNSPECIFIED Qualifiers: Fever type: due to other condition Qualified Code(s): R50.81 - Fever presenting with conditions classified elsewhere (2) Status post lumbar laminectomy Code(s): Z98.890 - OTHER SPECIFIED POSTPROCEDURAL STATES (3) GERD (gastroesophageal reflux disease) Code(s): K21.9 - GASTRO-ESOPHAGEAL REFLUX DISEASE WITHOUT ESOPHAGITIS (4) HLD (hyperlipidemia) Code(s): E78.5 - HYPERLIPIDEMIA, UNSPECIFIED plan continue abx continue current mgmt wound cx result noted await for surgery to reevaluate
[2017-05-23] MEDS ORDERED: ACETAMINOPHEN 500 MG TABLET (FP) ONE (14:07)
--- NOTE | 2017-05-23 16:07 | PN ---
Progress Note, Physician History of Present Illness: Pt w/ increased size of collection at surgical site - Current Medication List Current Medications: Active Medications Acetaminophen (Tylenol -) 650 mg PO Q6H PRN PRN Reason: FEVER OR PAIN Last Admin: 05/22/17 22:11 Dose: 650 mg Atorvastatin Calcium (Lipitor -) 40 mg PO HS [facility] Last Admin: 05/22/17 22:11 Dose: 40 mg Cyclobenzaprine HCl (Flexeril -) 10 mg PO TID PRN PRN Reason: MUSCLE SPASMS Last Admin: 05/22/17 22:10 Dose: 10 mg Fenofibric Acid (Trilipix -) 45 mg PO DAILY [facility] Last Admin: 05/23/17 10:09 Dose: 45 mg Cefazolin Sodium 1 gm/ (Dextrose) 50 mls @ 100 mls/hr IVPB Q8H-IV [facility] Last Admin: 05/23/17 10:09 Dose: 100 mls/hr Pantoprazole Sodium (Protonix -) 40 mg PO DAILY [facility] Last Admin: 05/23/17 10:09 Dose: 40 mg - Objective Vital Signs: Vital Signs Temperature 98.9 F 05/23/17 14:48 Pulse Rate 90 05/23/17 14:48 Respiratory Rate 18 05/23/17 14:48 Blood Pressure 115/71 05/23/17 14:48 O2 Sat by Pulse Oximetry (%) 100 05/23/17 11:27 Constitutional: Yes: No Distress HENT: Yes: WNL Neck: Yes: WNL, Supple Cardiovascular: Yes: WNL, Regular Rate and Rhythm Respiratory: Yes: WNL, Regular, CTA Bilaterally Gastrointestinal: Yes: WNL, Normal Bowel Sounds, Soft Musculoskeletal: Yes: Other ((+) increased fluid collection at surgical site LS spine (-) erythema/warmth) Labs: CBC, BMP 05/22/17 06:00 05/22/17 06:00 INR, PTT INR 1.15 (0.82-1.09) H 05/10/17 20:50 Problem List - Problems (1) Fever Assessment/Plan: Due to bacteremia/cellulitis/abscess Wound culture/fluid culture and BC are (+) for MSSA Repeat BC remain negative Aspirate culture remains negative Long d/w pt and NSG about increased collection Will re-aspirate site today Code(s): R50.9 - FEVER, UNSPECIFIED Qualifiers: Fever type: due to other condition Qualified Code(s): R50.81 - Fever presenting with conditions classified elsewhere (2) Status post lumbar laminectomy Assessment/Plan: Cont flexeril Pt is ambulating independently Code(s): Z98.890 - OTHER SPECIFIED POSTPROCEDURAL STATES (3) GERD (gastroesophageal reflux disease) Code(s): K21.9 - GASTRO-ESOPHAGEAL REFLUX DISEASE WITHOUT ESOPHAGITIS (4) HLD (hyperlipidemia) Code(s): E78.5 - HYPERLIPIDEMIA, UNSPECIFIED
--- NOTE | 2017-05-23 18:39 | PN ---
Progress Note (short form) - Note Progress Note: patient seen and examined today with Dr. Wilkerson. We were able to have a team discussion concerning his current state and expected course of care. Patient remains afebrile with a white count of 8.5, and no suggestion of infection in his wound. recent blood cultures times two and wound aspirate from last are all negative. Gram stain showed no organisms and no PMN in the wound aspirate. The patient has a fluid collection under the board however this is not as warm as it was on . After discussion of the risks benefits and alternatives to further aspiration it was decided that we would aspirate this collection and place foam on his back with an abdominal binder to reduce the speed of fluid reaccumulation. After sterile prep 100 mL of dark reddish fluid was easily withdrawn through an angiocath. This did not appear to be CSF. This did not appear to be infected. The clinical impression was that this represents seroma and hematoma. I spent one hour with the patient discussing his current state and expected Next steps to his care. The patient fully recalls my prior discussion before the surgery I performed notifying him that additional surgery may be required to help the wound to heal and that I would be going out of town starting tomorrow, Wednesday, May 24, 2017. The patient understands this information. I believe that the patient can be discharged in the coming days since his infection is well-controlled and I agree with the current plan of four weeks of cefazolin. The patient will get a picc line prior to discharge. I have offered the patient several options for coverage of my care during my absence and we will strive to respect his wishes and preferences well determining a course of care coverage for him while I am away. I have listed several different options for coverage of any potential divorce with the pool needs while I am away. The patient verbalizes and understanding. I have informed the patient that hopefully this collection will not need another aspiration nor wound revision however this cannot be assured and if he were to have a new collection he should contact my office or return to the emergency room for potential aspiration by one of the PA. overall the patient is very thankful and appreciative for the care which I have provided to him and remains optimistic that he will put this behind him and be able to recover.
[2017-05-23] MEDS: ATORVASTATIN CA 40 MG TABLET (FP) PO SCH (21:38)
[2017-05-23] MEDS: ACETAMINOPHEN 325 MG TABLET (FP) PO PRN (21:38)
[2017-05-23] MEDS: CYCLOBENZAPRINE HCL 10 MG TABLET (FP) PO PRN (21:38)
[2017-05-24] MEDS ORDERED: ceFAZolin SODIUM 1 GM VIAL ONE ×4 (01:21→21:54)
[2017-05-24] MEDS ORDERED: DEXTROSE 5%-WATER - 50 ML IVPB ONE ×4 (01:22→21:54)
[2017-05-24] MEDS: CEFAZOLIN 1 GM in DEXTROSE 5%-WATER - 50 ML IVPB SCH ×3 (01:30→18:50)
[2017-05-24 08:02] LABS: BASOPHIL 0.7 % (0-2.0); EOSINOPHIL 1.5 % (0-4.5); MCH 32.8 pg (25.7-33.7); MCHC 34.4 g/dl (32.0-35.9); MEAN CELL VOLUME 95.4 fl (80-96); MEAN PLT VOLUME 7.2 fl (7.5-11.1); NEUTROPHILS 64.3 % (42.8-82.8); PLATELET COUNT 428 K/MM3 (134-434); RDW 12.9 % (11.9-15.9); WHITE BLOOD COUNT 8.4 K/mm3 (4.0-10.0)
[2017-05-24 08:29] LABS: ALBUMIN 3.1 g/dl (3.4-5.0); ANION GAP 9 (8-16); CO2 26 mmol/L (21-32); GLUCOSE,RANDOM 107 mg/dL (74-106); SGOT/AST 17 U/L (15-37); SGPT/ALT 25 U/L (12-78)
[2017-05-24 08:31] LABS: ALK PHOS 62 U/L (45-117); BILIRUBIN,TOTAL 0.2 mg/dL (0.2-1.0); CALCIUM 9.6 mg/dL (8.5-10.1); CREATININE 0.6 mg/dL (0.7-1.3); TOT PROT 6.4 g/dl (6.4-8.2)
[2017-05-24] MEDS: FENOFIBRIC ACID 45 MG CAP PO SCH (10:56)
[2017-05-24] MEDS: PANTOPRAZOLE 40 MG TABLET (FP) PO SCH (10:57)
--- NOTE | 2017-05-24 16:39 | PN ---
Progress Note, Physician History of Present Illness: patient stable no new issues was tapped and fluid removed from the wound of the back currently patient ervin no complaints - Current Medication List Current Medications: Active Medications Acetaminophen (Tylenol -) 650 mg PO Q6H PRN PRN Reason: FEVER OR PAIN Last Admin: 05/23/17 21:38 Dose: 650 mg Atorvastatin Calcium (Lipitor -) 40 mg PO HS [facility] Last Admin: 05/23/17 21:38 Dose: 40 mg Cyclobenzaprine HCl (Flexeril -) 10 mg PO TID PRN PRN Reason: MUSCLE SPASMS Last Admin: 05/23/17 21:38 Dose: 10 mg Fenofibric Acid (Trilipix -) 45 mg PO DAILY [facility] Last Admin: 05/24/17 10:56 Dose: 45 mg Cefazolin Sodium 1 gm/ (Dextrose) 50 mls @ 100 mls/hr IVPB Q8H-IV [facility] Last Admin: 05/24/17 10:57 Dose: 100 mls/hr Pantoprazole Sodium (Protonix -) 40 mg PO DAILY [facility] Last Admin: 05/24/17 10:57 Dose: 40 mg - Objective Vital Signs: Vital Signs Temperature 98.5 F 05/24/17 09:00 Pulse Rate 84 05/24/17 11:31 Respiratory Rate 16 05/24/17 09:00 Blood Pressure 125/73 05/24/17 09:00 O2 Sat by Pulse Oximetry (%) 98 05/24/17 11:31 Constitutional: Yes: No Distress, Calm Cardiovascular: Yes: Regular Rate and Rhythm Respiratory: Yes: Regular, CTA Bilaterally Gastrointestinal: Yes: Normal Bowel Sounds, Soft Musculoskeletal: Yes: WNL Extremities: Yes: WNL Wound/Incision: Yes: Clean/Dry, Dressing Dry and Intact Neurological: Yes: Alert, Oriented Psychiatric: Yes: Alert, Oriented Labs: CBC, BMP 05/24/17 06:10 05/24/17 06:10 INR, PTT INR 1.15 (0.82-1.09) H 05/10/17 20:50 Assessment/Plan sepsis cellulitits of the back collection/abscess in the back/csf leak leukocytosis gm positive bacteremia (1) Fever Code(s): R50.9 - FEVER, UNSPECIFIED Qualifiers: Fever type: due to other condition Qualified Code(s): R50.81 - Fever presenting with conditions classified elsewhere (2) Status post lumbar laminectomy Code(s): Z98.890 - OTHER SPECIFIED POSTPROCEDURAL STATES (3) GERD (gastroesophageal reflux disease) Code(s): K21.9 - GASTRO-ESOPHAGEAL REFLUX DISEASE WITHOUT ESOPHAGITIS (4) HLD (hyperlipidemia) Code(s): E78.5 - HYPERLIPIDEMIA, UNSPECIFIED plan continue abx continue current mgmt wound cx result noted patient retapped patient needs abx as planned
--- NOTE | 2017-05-24 20:13 | PN ---
Progress Note, Physician History of Present Illness: NO COMPLAIN - Current Medication List Current Medications: Active Medications Acetaminophen (Tylenol -) 650 mg PO Q6H PRN PRN Reason: FEVER OR PAIN Last Admin: 05/23/17 21:38 Dose: 650 mg Atorvastatin Calcium (Lipitor -) 40 mg PO HS [facility] Last Admin: 05/23/17 21:38 Dose: 40 mg Cyclobenzaprine HCl (Flexeril -) 10 mg PO TID PRN PRN Reason: MUSCLE SPASMS Last Admin: 05/23/17 21:38 Dose: 10 mg Fenofibric Acid (Trilipix -) 45 mg PO DAILY [facility] Last Admin: 05/24/17 10:56 Dose: 45 mg Cefazolin Sodium 1 gm/ (Dextrose) 50 mls @ 100 mls/hr IVPB Q8H-IV [facility] Last Admin: 05/24/17 18:50 Dose: 100 mls/hr Pantoprazole Sodium (Protonix -) 40 mg PO DAILY [facility] Last Admin: 05/24/17 10:57 Dose: 40 mg - Objective Vital Signs: Vital Signs Temperature 97.5 F L 05/24/17 16:15 Pulse Rate 94 H 05/24/17 16:15 Respiratory Rate 20 05/24/17 16:15 Blood Pressure 147/88 05/24/17 16:15 O2 Sat by Pulse Oximetry (%) 98 05/24/17 11:31 Constitutional: Yes: No Distress HENT: Yes: Atraumatic Neck: Yes: Supple Cardiovascular: Yes: Regular Rate and Rhythm Respiratory: Yes: CTA Bilaterally Gastrointestinal: Yes: Normal Bowel Sounds Musculoskeletal: Yes: Other (BACK DRESSING INTACT SOME SWELLING AT THE DRESSING SITE AND AROUND NOTED) Extremities: Yes: WNL Edema: No Peripheral Pulses WNL: Yes Neurological: Yes: Alert, Oriented Labs: CBC, BMP 05/24/17 06:10 05/24/17 06:10 INR, PTT INR 1.15 (0.82-1.09) H 05/10/17 20:50 Problem List - Problems (1) Fever Assessment/Plan: on abx wound cxs noted pt has been afebrile Code(s): R50.9 - FEVER, UNSPECIFIED Qualifiers: Fever type: due to other condition Qualified Code(s): R50.81 - Fever presenting with conditions classified elsewhere (2) HLD (hyperlipidemia) Assessment/Plan: on meds stable Code(s): E78.5 - HYPERLIPIDEMIA, UNSPECIFIED (3) Leukocytosis Assessment/Plan: resolved Code(s): D72.829 - ELEVATED WHITE BLOOD CELL COUNT, UNSPECIFIED Qualifiers: Leukocytosis type: other Qualified Code(s): D72.828 - Other elevated white blood cell count (4) Status post lumbar laminectomy Assessment/Plan: RECOVERING SEEN BY DR CHENG WHO DID DRAINAGE ...SEROMA VS HEMATOMA HIS NOTE REVIEWED Code(s): Z98.890 - OTHER SPECIFIED POSTPROCEDURAL STATES Assessment/Plan covering dr stoddard...DAY 1 THIS IS MY FIRST ENCOUNTER WITH THIS PATIENT
[2017-05-24] MEDS: ATORVASTATIN CA 40 MG TABLET (FP) PO SCH (22:41)
[2017-05-24] MEDS: CYCLOBENZAPRINE HCL 10 MG TABLET (FP) PO PRN (22:41)
[2017-05-24] MEDS: ACETAMINOPHEN 325 MG TABLET (FP) PO PRN (22:45)
[2017-05-25] MEDS: CEFAZOLIN 1 GM in DEXTROSE 5%-WATER - 50 ML IVPB SCH ×3 (02:04→18:32)
[2017-05-25] MEDS ORDERED: PT OWN MED DRAWER 7, Y5N ONE (09:11)
[2017-05-25] MEDS ORDERED: ceFAZolin SODIUM 1 GM VIAL ONE ×2 (09:11→21:07)
[2017-05-25] MEDS ORDERED: DEXTROSE 5%-WATER - 50 ML IVPB ONE ×2 (09:12→21:07)
[2017-05-25] MEDS: PANTOPRAZOLE 40 MG TABLET (FP) PO SCH (09:24)
[2017-05-25] MEDS: FENOFIBRIC ACID 45 MG CAP PO SCH (09:24)
--- NOTE | 2017-05-25 14:06 | PN ---
Progress Note, Physician History of Present Illness: wound starting to fill up again no complaints - Current Medication List Current Medications: Active Medications Acetaminophen (Tylenol -) 650 mg PO Q6H PRN PRN Reason: FEVER OR PAIN Last Admin: 05/24/17 22:45 Dose: 650 mg Atorvastatin Calcium (Lipitor -) 40 mg PO HS [facility] Last Admin: 05/24/17 22:41 Dose: 40 mg Cyclobenzaprine HCl (Flexeril -) 10 mg PO TID PRN PRN Reason: MUSCLE SPASMS Last Admin: 05/24/17 22:41 Dose: 10 mg Fenofibric Acid (Trilipix -) 45 mg PO DAILY [facility] Last Admin: 05/25/17 09:24 Dose: 45 mg Cefazolin Sodium 1 gm/ (Dextrose) 50 mls @ 100 mls/hr IVPB Q8H-IV [facility] Last Admin: 05/25/17 09:25 Dose: 100 mls/hr Pantoprazole Sodium (Protonix -) 40 mg PO DAILY [facility] Last Admin: 05/25/17 09:24 Dose: 40 mg - Objective Vital Signs: Vital Signs Temperature 97.5 F L 05/24/17 16:15 Pulse Rate 94 H 05/24/17 16:15 Respiratory Rate 20 05/24/17 21:00 Blood Pressure 147/88 05/24/17 16:15 O2 Sat by Pulse Oximetry (%) 98 05/24/17 21:00 Constitutional: Yes: No Distress, Calm Cardiovascular: Yes: Regular Rate and Rhythm Respiratory: Yes: Regular, CTA Bilaterally Musculoskeletal: Yes: WNL Extremities: Yes: WNL Wound/Incision: Yes: Dressing Dry and Intact Neurological: Yes: Alert, Oriented Psychiatric: Yes: Alert, Oriented Labs: CBC, BMP 05/24/17 06:10 05/24/17 06:10 INR, PTT INR 1.15 (0.82-1.09) H 05/10/17 20:50 Assessment/Plan sepsis cellulitits of the back collection/abscess in the back/csf leak leukocytosis gm positive bacteremia (1) Fever Code(s): R50.9 - FEVER, UNSPECIFIED Qualifiers: Fever type: due to other condition Qualified Code(s): R50.81 - Fever presenting with conditions classified elsewhere (2) Status post lumbar laminectomy Code(s): Z98.890 - OTHER SPECIFIED POSTPROCEDURAL STATES (3) GERD (gastroesophageal reflux disease) Code(s): K21.9 - GASTRO-ESOPHAGEAL REFLUX DISEASE WITHOUT ESOPHAGITIS (4) HLD (hyperlipidemia) Code(s): E78.5 - HYPERLIPIDEMIA, UNSPECIFIED plan continue abx continue as planned wound is filling up again clinically patient is normal
--- NOTE | 2017-05-25 18:56 | PN ---
Progress Note, Physician History of Present Illness: NO PAIN , NO HEADACHE - Current Medication List Current Medications: Active Medications Acetaminophen (Tylenol -) 650 mg PO Q6H PRN PRN Reason: FEVER OR PAIN Last Admin: 05/24/17 22:45 Dose: 650 mg Atorvastatin Calcium (Lipitor -) 40 mg PO HS [facility] Last Admin: 05/24/17 22:41 Dose: 40 mg Cyclobenzaprine HCl (Flexeril -) 10 mg PO TID PRN PRN Reason: MUSCLE SPASMS Last Admin: 05/24/17 22:41 Dose: 10 mg Fenofibric Acid (Trilipix -) 45 mg PO DAILY [facility] Last Admin: 05/25/17 09:24 Dose: 45 mg Cefazolin Sodium 1 gm/ (Dextrose) 50 mls @ 100 mls/hr IVPB Q8H-IV [facility] Last Admin: 05/25/17 18:32 Dose: 100 mls/hr Pantoprazole Sodium (Protonix -) 40 mg PO DAILY [facility] Last Admin: 05/25/17 09:24 Dose: 40 mg - Objective Vital Signs: Vital Signs Temperature 98.2 F 05/25/17 16:15 Pulse Rate 80 05/25/17 16:15 Respiratory Rate 20 05/25/17 16:15 Blood Pressure 101/60 05/25/17 16:15 O2 Sat by Pulse Oximetry (%) 99 05/25/17 09:00 Constitutional: Yes: No Distress HENT: Yes: Atraumatic Neck: Yes: Supple Cardiovascular: Yes: Regular Rate and Rhythm Respiratory: Yes: CTA Bilaterally Gastrointestinal: Yes: Normal Bowel Sounds Musculoskeletal: Yes: Other (BACK DRESSING IN PLACE) Extremities: Yes: WNL Neurological: Yes: Alert, Oriented Labs: CBC, BMP 05/24/17 06:10 05/24/17 06:10 INR, PTT INR 1.15 (0.82-1.09) H 05/10/17 20:50 Problem List - Problems (1) Fever Assessment/Plan: on abx wound cxs noted pt has been afebrile Code(s): R50.9 - FEVER, UNSPECIFIED Qualifiers: Fever type: due to other condition Qualified Code(s): R50.81 - Fever presenting with conditions classified elsewhere (2) HLD (hyperlipidemia) Assessment/Plan: on meds stable Code(s): E78.5 - HYPERLIPIDEMIA, UNSPECIFIED (3) Leukocytosis Assessment/Plan: resolved Code(s): D72.829 - ELEVATED WHITE BLOOD CELL COUNT, UNSPECIFIED Qualifiers: Leukocytosis type: other Qualified Code(s): D72.828 - Other elevated white blood cell count (4) Status post lumbar laminectomy Assessment/Plan: RECOVERING SEEN BY DR CHENG WHO DID DRAINAGE ...SEROMA VS HEMATOMA, HE DOES NOT BELIEVE IT IS CSF HIS NOTE REVIEWED Code(s): Z98.890 - OTHER SPECIFIED POSTPROCEDURAL STATES Assessment/Plan covering dr stoddard...DAY 2
[2017-05-25] MEDS: ATORVASTATIN CA 40 MG TABLET (FP) PO SCH (22:12)
[2017-05-25] MEDS: ACETAMINOPHEN 325 MG TABLET (FP) PO PRN (22:12)
[2017-05-25] MEDS: CYCLOBENZAPRINE HCL 10 MG TABLET (FP) PO PRN (22:12)
[2017-05-26] MEDS: CEFAZOLIN 1 GM in DEXTROSE 5%-WATER - 50 ML IVPB SCH ×3 (02:15→18:32)
[2017-05-26] MEDS ORDERED: ceFAZolin SODIUM 1 GM VIAL ONE ×2 (10:43→17:07)
[2017-05-26] MEDS ORDERED: PT OWN MED DRAWER 7, Y5N ONE (10:43)
[2017-05-26] MEDS ORDERED: DEXTROSE 5%-WATER - 50 ML IVPB ONE ×2 (10:43→17:07)
[2017-05-26] MEDS: FENOFIBRIC ACID 45 MG CAP PO SCH (10:48)
[2017-05-26] MEDS: PANTOPRAZOLE 40 MG TABLET (FP) PO SCH (10:48)
--- NOTE | 2017-05-26 12:16 | PN ---
Progress Note, Physician History of Present Illness: patient doing well no new issues still collecting - Current Medication List Current Medications: Active Medications Acetaminophen (Tylenol -) 650 mg PO Q6H PRN PRN Reason: FEVER OR PAIN Last Admin: 05/25/17 22:12 Dose: 650 mg Atorvastatin Calcium (Lipitor -) 40 mg PO HS [facility]NA Last Admin: 05/25/17 22:12 Dose: 40 mg Cyclobenzaprine HCl (Flexeril -) 10 mg PO TID PRN PRN Reason: MUSCLE SPASMS Last Admin: 05/25/17 22:12 Dose: 10 mg Fenofibric Acid (Trilipix -) 45 mg PO DAILY [facility] Last Admin: 05/26/17 10:48 Dose: 45 mg Cefazolin Sodium (Ancef 1 Gm Premixed Ivpb -) 50 mls @ 100 mls/hr IVPB Q8H-IV [facility] Pantoprazole Sodium (Protonix -) 40 mg PO DAILY [facility] Last Admin: 05/26/17 10:48 Dose: 40 mg - Objective Vital Signs: Vital Signs Temperature 97.7 F 05/25/17 22:00 Pulse Rate 80 05/25/17 22:00 Respiratory Rate 20 05/25/17 22:00 Blood Pressure 109/72 05/25/17 22:00 O2 Sat by Pulse Oximetry (%) 99 05/25/17 21:00 Constitutional: Yes: No Distress, Calm Cardiovascular: Yes: Regular Rate and Rhythm Respiratory: Yes: Regular, CTA Bilaterally Gastrointestinal: Yes: Normal Bowel Sounds, Soft Musculoskeletal: Yes: WNL Extremities: Yes: WNL Wound/Incision: Yes: Dressing Dry and Intact Neurological: Yes: Alert, Oriented Psychiatric: Yes: Alert, Oriented Labs: CBC, BMP 05/24/17 06:10 05/24/17 06:10 INR, PTT INR 1.15 (0.82-1.09) H 05/10/17 20:50 Assessment/Plan sepsis cellulitits of the back collection/abscess in the back/csf leak leukocytosis gm positive bacteremia (1) Fever Code(s): R50.9 - FEVER, UNSPECIFIED Qualifiers: Fever type: due to other condition Qualified Code(s): R50.81 - Fever presenting with conditions classified elsewhere (2) Status post lumbar laminectomy Code(s): Z98.890 - OTHER SPECIFIED POSTPROCEDURAL STATES (3) GERD (gastroesophageal reflux disease) Code(s): K21.9 - GASTRO-ESOPHAGEAL REFLUX DISEASE WITHOUT ESOPHAGITIS (4) HLD (hyperlipidemia) Code(s): E78.5 - HYPERLIPIDEMIA, UNSPECIFIED plan continue abx continue as planned continue to monitor the wound rest as per neurosurg
--- NOTE | 2017-05-26 17:34 | PN ---
Progress Note, Physician History of Present Illness: c/o headache...FEELS HEAVY IN HEAD - Current Medication List Current Medications: Active Medications Acetaminophen (Tylenol -) 650 mg PO Q6H PRN PRN Reason: FEVER OR PAIN Last Admin: 05/25/17 22:12 Dose: 650 mg Atorvastatin Calcium (Lipitor -) 40 mg PO HS [facility]NA Last Admin: 05/25/17 22:12 Dose: 40 mg Cyclobenzaprine HCl (Flexeril -) 10 mg PO TID PRN PRN Reason: MUSCLE SPASMS Last Admin: 05/25/17 22:12 Dose: 10 mg Fenofibric Acid (Trilipix -) 45 mg PO DAILY [facility] Last Admin: 05/26/17 10:48 Dose: 45 mg Cefazolin Sodium 1 gm/ (Dextrose) 50 mls @ 100 mls/hr IVPB Q8H-IV [facility] Pantoprazole Sodium (Protonix -) 40 mg PO DAILY [facility] Last Admin: 05/26/17 10:48 Dose: 40 mg - Objective Vital Signs: Vital Signs Temperature 98.4 F 05/26/17 15:16 Pulse Rate 92 H 05/26/17 15:16 Respiratory Rate 18 05/26/17 15:16 Blood Pressure 118/69 05/26/17 15:16 O2 Sat by Pulse Oximetry (%) 97 05/26/17 09:00 Constitutional: Yes: No Distress HENT: Yes: Atraumatic Neck: Yes: Supple Cardiovascular: Yes: Regular Rate and Rhythm Respiratory: Yes: CTA Bilaterally Gastrointestinal: Yes: Normal Bowel Sounds Musculoskeletal: Yes: Other (SWELLING AROUND DRESSING AND UNDER at the back where surgery was done) Extremities: Yes: WNL Neurological: Yes: Alert, Oriented Labs: CBC, BMP 05/24/17 06:10 05/24/17 06:10 INR, PTT INR 1.15 (0.82-1.09) H 05/10/17 20:50 Problem List - Problems (1) Fever Assessment/Plan: on abx wound cxs noted pt has been afebrile Code(s): R50.9 - FEVER, UNSPECIFIED Qualifiers: Fever type: due to other condition Qualified Code(s): R50.81 - Fever presenting with conditions classified elsewhere (2) HLD (hyperlipidemia) Assessment/Plan: on meds stable Code(s): E78.5 - HYPERLIPIDEMIA, UNSPECIFIED (3) Leukocytosis Assessment/Plan: resolved Code(s): D72.829 - ELEVATED WHITE BLOOD CELL COUNT, UNSPECIFIED Qualifiers: Leukocytosis type: other Qualified Code(s): D72.828 - Other elevated white blood cell count (4) Status post lumbar laminectomy Assessment/Plan: RECOVERING SEEN BY DR CHENG WHO DID DRAINAGE ...SEROMA VS HEMATOMA, HE DOES NOT BELIEVE IT IS CSF HIS NOTE REVIEWED Code(s): Z98.890 - OTHER SPECIFIED POSTPROCEDURAL STATES Assessment/Plan covering dr stoddard...DAY 3 SHE WILL RESUME CARE FROM TOMORROW I WILL CONSULT NEUROLOGY TO EVALUATE HEADACHE ALSO AWAITING NEUROSURGEON TO COME
[2017-05-26] MEDS: ACETAMINOPHEN 325 MG TABLET (FP) PO PRN (19:22)
[2017-05-26] MEDS: ATORVASTATIN CA 40 MG TABLET (FP) PO SCH (21:27)
[2017-05-26] MEDS: CYCLOBENZAPRINE HCL 10 MG TABLET (FP) PO PRN (21:27)
[2017-05-27] MEDS ORDERED: DEXTROSE 5%-WATER - 50 ML IVPB ONE ×2 (01:02→09:52)
[2017-05-27] MEDS ORDERED: ceFAZolin SODIUM 1 GM VIAL ONE ×2 (01:02→09:52)
[2017-05-27] MEDS: CEFAZOLIN 1 GM in DEXTROSE 5%-WATER - 50 ML IVPB SCH ×3 (01:26→17:08)
[2017-05-27 08:09] LABS: ANION GAP 11 (8-16); CALCIUM 8.8 mg/dL (8.5-10.1); CO2 27 mmol/L (21-32); GLUCOSE,RANDOM 90 mg/dL (74-106)
[2017-05-27 08:13] LABS: ALK PHOS 57 U/L (45-117); BILIRUBIN,TOTAL 0.6 mg/dL (0.2-1.0); CREATININE 0.6 mg/dL (0.7-1.3); SGOT/AST 14 U/L (15-37); SGPT/ALT 21 U/L (12-78); TOT PROT 6.3 g/dl (6.4-8.2)
[2017-05-27] MEDS ORDERED: PT OWN MED DRAWER 7, Y5N ONE (09:52)
[2017-05-27] MEDS: PANTOPRAZOLE 40 MG TABLET (FP) PO SCH (10:01)
[2017-05-27] MEDS: FENOFIBRIC ACID 45 MG CAP PO SCH (10:01)
[2017-05-27] MEDS: ACETAMINOPHEN 325 MG TABLET (FP) PO PRN (10:01)
[2017-05-27 10:02] LABS: BASOPHIL 0.7 % (0-2.0); MCHC 34.8 g/dl (32.0-35.9); MEAN CELL VOLUME 94.7 fl (80-96); MEAN PLT VOLUME 7.3 fl (7.5-11.1); NEUTROPHILS 70.9 % (42.8-82.8); PLATELET COUNT 341 K/MM3 (134-434); RDW 13.3 % (11.9-15.9); WHITE BLOOD COUNT 7.3 K/mm3 (4.0-10.0)
--- NOTE | 2017-05-27 13:01 | PN ---
Progress Note, Physician History of Present Illness: patient doing well no new issues no discomfort - Current Medication List Current Medications: Active Medications Acetaminophen (Tylenol -) 650 mg PO Q6H PRN PRN Reason: FEVER OR PAIN Last Admin: 05/27/17 10:01 Dose: 650 mg Atorvastatin Calcium (Lipitor -) 40 mg PO HS MIRNA Last Admin: 05/26/17 21:27 Dose: 40 mg Cyclobenzaprine HCl (Flexeril -) 10 mg PO TID PRN PRN Reason: MUSCLE SPASMS Last Admin: 05/26/17 21:27 Dose: 10 mg Fenofibric Acid (Trilipix -) 45 mg PO DAILY [facility] Last Admin: 05/27/17 10:01 Dose: 45 mg Cefazolin Sodium 1 gm/ (Dextrose) 50 mls @ 100 mls/hr IVPB Q8H-IV [facility]NA Last Admin: 05/27/17 10:01 Dose: 100 mls/hr Pantoprazole Sodium (Protonix -) 40 mg PO DAILY [facility] Last Admin: 05/27/17 10:01 Dose: 40 mg - Objective Vital Signs: Vital Signs Temperature 98.7 F 05/26/17 22:00 Pulse Rate 84 05/26/17 22:00 Respiratory Rate 16 05/26/17 22:00 Blood Pressure 121/71 05/26/17 22:00 O2 Sat by Pulse Oximetry (%) 97 05/26/17 21:00 Constitutional: Yes: No Distress, Calm Cardiovascular: Yes: Regular Rate and Rhythm Respiratory: Yes: Regular, CTA Bilaterally Gastrointestinal: Yes: Normal Bowel Sounds, Soft Musculoskeletal: Yes: WNL Extremities: Yes: WNL Wound/Incision: Yes: Clean/Dry, Other (swelling around the wound) Neurological: Yes: Alert, Oriented Psychiatric: Yes: Alert Labs: CBC, BMP 05/27/17 09:00 05/27/17 06:50 INR, PTT INR 1.15 (0.82-1.09) H 05/10/17 20:50 Assessment/Plan sepsis cellulitits of the back collection/abscess in the back/csf leak leukocytosis gm positive bacteremia (1) Fever Code(s): R50.9 - FEVER, UNSPECIFIED Qualifiers: Fever type: due to other condition Qualified Code(s): R50.81 - Fever presenting with conditions classified elsewhere (2) Status post lumbar laminectomy Code(s): Z98.890 - OTHER SPECIFIED POSTPROCEDURAL STATES (3) GERD (gastroesophageal reflux disease) Code(s): K21.9 - GASTRO-ESOPHAGEAL REFLUX DISEASE WITHOUT ESOPHAGITIS (4) HLD (hyperlipidemia) Code(s): E78.5 - HYPERLIPIDEMIA, UNSPECIFIED plan continue abx continue as planned continue to monitor the wound rest as per neurosurgery will check the wound tomorrow
--- NOTE | 2017-05-27 15:37 | CON.NEURO ---
Consult - History of Present Illness History of Present Illness: Headche for three days HPI 61 year old male who recently had Laminectomy by Dr Newton and followed by revision by Dr Quesada and abscess drainage. So with reviewing this chart, there was no csf leak and drainage was mostly abscess. Patient is not having fever or have high wbc. Patient is on antibiotic He has been having mild headache for three dyas, he is not able to sleep and he is been waking up several times during night. He denies any dysphagia , dysarhria diplopia. NO urinary incontinence or weaknes or tinglign or numbness in the leg. 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 - Past Medical History Gastrointestinal: Yes: GERD, Hiatal Hernia, Other (Mcmahon's Esophagitis) Dermatology: Yes: Squamous Cell, Other - Alcohol/Substance Use Hx Alcohol Use: No - Smoking History Smoking history: Never smoked Have you smoked in the past 12 months: No Aproximately how many cigarettes per day: 0 If you are a former smoker, when did you quit?: 2004 Home Medications - Allergies Allergies/Adverse Reactions: Allergies Allergy/AdvReac Type Severity Reaction Status Date / Time No Known Drug Allergies Allergy Verified 05/18/17 16:59 - Home Medications Home Medications: Ambulatory Orders Atorvastatin Ca [Lipitor] 40 mg PO HS 03/29/13 Fenofibrate 40 mg PO DAILY 11/06/15 Ibuprofen [Motrin -] 600 mg PO DAILY PRN 04/20/17 Omeprazole 40 PO DAILY 05/11/17 Physical Exam-Neuro Vital Signs: Vital Signs Temperature 98.2 F 05/27/17 14:57 Pulse Rate 85 05/27/17 14:57 Respiratory Rate 18 05/27/17 14:57 Blood Pressure 123/69 05/27/17 14:57 O2 Sat by Pulse Oximetry (%) 97 05/26/17 21:00 Labs: CBC, BMP 05/27/17 09:00 05/27/17 06:50 INR, PTT INR 1.15 (0.82-1.09) H 05/10/17 20:50 NIH Stroke Scale - Total Score NIH Stroke Scale Score: 0 Imaging - Results Cat Scan: Report Reviewed, Image Reviewed Assessment/Plan cc Headche for three days HPI 61 year old male who recently had Laminectomy by Dr Newton and followed by revision by Dr Quesada and abscess drainage. So with reviewing this chart, there was no csf leak and drainage was mostly abscess. Patient is not having fever or have high wbc. Patient is on antibiotic He has been having mild headache for three dyas, he is not able to sleep and he is been waking up several times during night. He denies any dysphagia , dysarhria diplopia. NO urinary incontinence or weaknes or tinglign or numbness in the leg. 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 Medication REVIEWED IN CHART Neurological Examination Aler oriented x 3 CN all intact , eomi and no facial weakness, sensation is normal moving all extremity 5/5 all ext sensation is normal reflex are normal able to walk and coordination is normal MRI of L spine reviwed Assessment- Headahce for three days, ( there is no very stong corelation with posture ) , less likley be duet to Intracranial hypotension Plan-- hold off mri of brain with contrast , if headhace persists would do mri of brain with contrast - suggest to give him benadryl or ativan .5 mg qhs - drink plenty of fluids -- drink gatorade and caffeine products - advise bed rest spoke to patient and spoken to primary team also spoken to dr quesada and same page with holding off mri of brain at this time thanks for consult judi shore md
[2017-05-27] MEDS: ATORVASTATIN CA 40 MG TABLET (FP) PO SCH (21:18)
[2017-05-27] MEDS ORDERED: LORazepam 0.5 MG TABLET PO ONE (23:30)
[2017-05-28] MEDS ORDERED: DEXTROSE 5%-WATER - 50 ML IVPB ONE ×4 (01:10→20:42)
[2017-05-28] MEDS ORDERED: ceFAZolin SODIUM 1 GM VIAL ONE ×4 (01:10→20:42)
--- NOTE | 2017-05-28 01:18 | PN ---
Progress Note, Physician - Current Medication List Current Medications: Active Medications Acetaminophen (Tylenol -) 650 mg PO Q6H PRN PRN Reason: FEVER OR PAIN Last Admin: 05/27/17 10:01 Dose: 650 mg Atorvastatin Calcium (Lipitor -) 40 mg PO HS MIRNA Last Admin: 05/27/17 21:18 Dose: 40 mg Cyclobenzaprine HCl (Flexeril -) 10 mg PO TID PRN PRN Reason: MUSCLE SPASMS Last Admin: 05/26/17 21:27 Dose: 10 mg Fenofibric Acid (Trilipix -) 45 mg PO DAILY [facility]NA Last Admin: 05/27/17 10:01 Dose: 45 mg Cefazolin Sodium 1 gm/ (Dextrose) 50 mls @ 100 mls/hr IVPB Q8H-IV [facility] Last Admin: 05/27/17 17:08 Dose: 100 mls/hr Pantoprazole Sodium (Protonix -) 40 mg PO DAILY [facility]NA Last Admin: 05/27/17 10:01 Dose: 40 mg - Objective Vital Signs: Vital Signs Temperature 98.2 F 05/27/17 18:46 Pulse Rate 83 05/27/17 18:46 Respiratory Rate 18 05/27/17 18:46 Blood Pressure 119/71 05/27/17 18:46 O2 Sat by Pulse Oximetry (%) 100 05/27/17 09:00 Labs: CBC, BMP 05/27/17 09:00 05/27/17 06:50 INR, PTT INR 1.15 (0.82-1.09) H 05/10/17 20:50 Problem List - Problems (1) Fever Code(s): R50.9 - FEVER, UNSPECIFIED Qualifiers: Fever type: due to other condition Qualified Code(s): R50.81 - Fever presenting with conditions classified elsewhere (2) Status post lumbar laminectomy Code(s): Z98.890 - OTHER SPECIFIED POSTPROCEDURAL STATES (3) GERD (gastroesophageal reflux disease) Code(s): K21.9 - GASTRO-ESOPHAGEAL REFLUX DISEASE WITHOUT ESOPHAGITIS (4) HLD (hyperlipidemia) Code(s): E78.5 - HYPERLIPIDEMIA, UNSPECIFIED
[2017-05-28] MEDS: CEFAZOLIN 1 GM in DEXTROSE 5%-WATER - 50 ML IVPB SCH ×3 (02:05→18:07)
[2017-05-28] MEDS ORDERED: PICC LINE 8 ML FLUSH PROTOCOL IVPUSH PRN (02:41)
[2017-05-28] MEDS ORDERED: INSULIN (NOVOLOG MIX 70/30) 100 UNITS/ML MDV SQ ONE (06:56)
[2017-05-28] MEDS ORDERED: PT OWN MED DRAWER 7, Y5N ONE (10:36)
[2017-05-28] MEDS: PANTOPRAZOLE 40 MG TABLET (FP) PO SCH (10:44)
[2017-05-28] MEDS: FENOFIBRIC ACID 45 MG CAP PO SCH (10:44)
--- NOTE | 2017-05-28 12:25 | PN ---
Progress Note, Physician History of Present Illness: patient doing well no new issues no discomfort picc line - Current Medication List Current Medications: Active Medications Acetaminophen (Tylenol -) 650 mg PO Q6H PRN PRN Reason: FEVER OR PAIN Last Admin: 05/27/17 10:01 Dose: 650 mg Atorvastatin Calcium (Lipitor -) 40 mg PO HS MIRNA Last Admin: 05/27/17 21:18 Dose: 40 mg Cyclobenzaprine HCl (Flexeril -) 10 mg PO TID PRN PRN Reason: MUSCLE SPASMS Last Admin: 05/26/17 21:27 Dose: 10 mg Fenofibric Acid (Trilipix -) 45 mg PO DAILY [facility] Last Admin: 05/28/17 10:44 Dose: 45 mg IV Flush (Picc Line Flush) 8 ml IVPUSH PRN PRN PRN Reason: Protocol Cefazolin Sodium 1 gm/ (Dextrose) 50 mls @ 100 mls/hr IVPB Q8H-IV [facility]NA Last Admin: 05/28/17 10:44 Dose: 100 mls/hr Pantoprazole Sodium (Protonix -) 40 mg PO DAILY [facility] Last Admin: 05/28/17 10:44 Dose: 40 mg - Objective Vital Signs: Vital Signs Temperature 98.4 F 05/28/17 06:34 Pulse Rate 80 05/28/17 06:34 Respiratory Rate 20 05/28/17 06:34 Blood Pressure 115/69 05/28/17 06:34 O2 Sat by Pulse Oximetry (%) 100 05/28/17 09:00 Constitutional: Yes: No Distress, Calm Cardiovascular: Yes: Regular Rate and Rhythm Respiratory: Yes: Regular, CTA Bilaterally Gastrointestinal: Yes: Normal Bowel Sounds, Soft Musculoskeletal: Yes: WNL Extremities: Yes: WNL Wound/Incision: Yes: Dressing Dry and Intact Neurological: Yes: Alert, Oriented Labs: CBC, BMP 05/27/17 09:00 05/27/17 06:50 INR, PTT INR 1.15 (0.82-1.09) H 05/10/17 20:50 Assessment/Plan sepsis cellulitits of the back collection/abscess in the back/csf leak leukocytosis gm positive bacteremia (1) Fever Code(s): R50.9 - FEVER, UNSPECIFIED Qualifiers: Fever type: due to other condition Qualified Code(s): R50.81 - Fever presenting with conditions classified elsewhere (2) Status post lumbar laminectomy Code(s): Z98.890 - OTHER SPECIFIED POSTPROCEDURAL STATES (3) GERD (gastroesophageal reflux disease) Code(s): K21.9 - GASTRO-ESOPHAGEAL REFLUX DISEASE WITHOUT ESOPHAGITIS (4) HLD (hyperlipidemia) Code(s): E78.5 - HYPERLIPIDEMIA, UNSPECIFIED plan patient needs abx for another 3 weeks cbc bmp weekly with esr and crp continue to follow with the primary
[2017-05-28] MEDS ORDERED: LORazepam 0.5 MG TABLET ONE (21:24)
[2017-05-28] MEDS: ATORVASTATIN CA 40 MG TABLET (FP) PO SCH (21:25)
[2017-05-28] MEDS ORDERED: LORazepam 0.5 MG TABLET PO ONE (22:00)
--- NOTE | 2017-05-28 23:51 | PN ---
Progress Note, Physician - Current Medication List Current Medications: Active Medications Acetaminophen (Tylenol -) 650 mg PO Q6H PRN PRN Reason: FEVER OR PAIN Last Admin: 05/27/17 10:01 Dose: 650 mg Atorvastatin Calcium (Lipitor -) 40 mg PO HS MIRNA Last Admin: 05/28/17 21:25 Dose: 40 mg Cyclobenzaprine HCl (Flexeril -) 10 mg PO TID PRN PRN Reason: MUSCLE SPASMS Last Admin: 05/26/17 21:27 Dose: 10 mg Fenofibric Acid (Trilipix -) 45 mg PO DAILY [facility] Last Admin: 05/28/17 10:44 Dose: 45 mg IV Flush (Picc Line Flush) 8 ml IVPUSH PRN PRN PRN Reason: Protocol Cefazolin Sodium 1 gm/ (Dextrose) 50 mls @ 100 mls/hr IVPB Q8H-IV [facility] Last Admin: 05/28/17 18:07 Dose: 100 mls/hr Pantoprazole Sodium (Protonix -) 40 mg PO DAILY [facility] Last Admin: 05/28/17 10:44 Dose: 40 mg - Objective Vital Signs: Vital Signs Temperature 98.5 F 05/28/17 22:00 Pulse Rate 87 05/28/17 22:00 Respiratory Rate 18 05/28/17 22:00 Blood Pressure 108/56 05/28/17 22:00 O2 Sat by Pulse Oximetry (%) 100 05/28/17 21:00 Labs: CBC, BMP 05/27/17 09:00 05/27/17 06:50 INR, PTT INR 1.15 (0.82-1.09) H 05/10/17 20:50 Problem List - Problems (1) Fever Code(s): R50.9 - FEVER, UNSPECIFIED Qualifiers: Fever type: due to other condition Qualified Code(s): R50.81 - Fever presenting with conditions classified elsewhere (2) Status post lumbar laminectomy Code(s): Z98.890 - OTHER SPECIFIED POSTPROCEDURAL STATES (3) GERD (gastroesophageal reflux disease) Code(s): K21.9 - GASTRO-ESOPHAGEAL REFLUX DISEASE WITHOUT ESOPHAGITIS (4) HLD (hyperlipidemia) Code(s): E78.5 - HYPERLIPIDEMIA, UNSPECIFIED
[2017-05-29] MEDS: CEFAZOLIN 1 GM in DEXTROSE 5%-WATER - 50 ML IVPB SCH ×3 (01:48→09:17)
[2017-05-29] MEDS ORDERED: ceFAZolin SODIUM 1 GM VIAL ONE (04:05)
[2017-05-29] MEDS ORDERED: DEXTROSE 5%-WATER - 50 ML IVPB ONE (04:05)
[2017-05-29 07:25] LABS: BASOPHIL 0.8 % (0-2.0); EOSINOPHIL 1.6 % (0-4.5); MCH 32.8 pg (25.7-33.7); MCHC 34.4 g/dl (32.0-35.9); MEAN CELL VOLUME 95.2 fl (80-96); MEAN PLT VOLUME 7.4 fl (7.5-11.1); NEUTROPHILS 65.6 % (42.8-82.8); PLATELET COUNT 268 K/MM3 (134-434); RDW 12.9 % (11.9-15.9); WHITE BLOOD COUNT 6.9 K/mm3 (4.0-10.0)
[2017-05-29 07:50] LABS: ALBUMIN 3.1 g/dl (3.4-5.0); ANION GAP 9 (8-16); CALCIUM 9.3 mg/dL (8.5-10.1); CO2 26 mmol/L (21-32); CREATININE 0.7 mg/dL (0.7-1.3); GLUCOSE,RANDOM 106 mg/dL (74-106); SGOT/AST 14 U/L (15-37); SGPT/ALT 18 U/L (12-78)
[2017-05-29 07:53] LABS: ALK PHOS 59 U/L (45-117); BILIRUBIN,TOTAL 0.3 mg/dL (0.2-1.0); TOT PROT 6.2 g/dl (6.4-8.2)
[2017-05-29] MEDS ORDERED: PT OWN MED DRAWER 7, Y5N ONE (09:09)
[2017-05-29] MEDS: FENOFIBRIC ACID 45 MG CAP PO SCH (09:18)
[2017-05-29] MEDS: PANTOPRAZOLE 40 MG TABLET (FP) PO SCH (09:18)
[2017-05-29 11:32] VITALS: BP 116/69; PULSE 93; TEMP 98
== END 2017-05-29 11:31 | disposition home or self-care (01) | DRG 23 ==
LOC: JER 17:52 → J7W 23:53 → OBSVTOIN 05-11 22:45 → J8W 05-13 21:15
PROVIDERS: ADMIT Internal Medicine; ATTEND Internal Medicine
PROC: 00QT0ZZ Repair Spinal Meninges, Open Approach (ICD-10-PCS; 2017-05-13)
PROC: 0JX70ZZ Transfer Back Subcutaneous Tissue and Fascia, Open Approach (ICD-10-PCS; 2017-05-13)
PROC: 009U0ZX Drainage of Spinal Canal, Open Approach, Diagnostic (ICD-10-PCS; principal; 2017-05-13 16:30)
PROC: 009U3ZZ Drainage of Spinal Canal, Percutaneous Approach (ICD-10-PCS; 2017-05-20)
PROC: 02HV33Z Insertion of Infusion Device into Superior Vena Cava, Percutaneous Approach (ICD-10-PCS; 2017-05-28)
PROC: B518ZZA Fluoroscopy of Superior Vena Cava, Guidance (ICD-10-PCS; 2017-05-28)
DX: G97.82 Other postprocedural complications and disorders of nervous system (principal); A41.9 Sepsis, unspecified organism; K22.70 Barrett's esophagus without dysplasia; G97.41 Accidental puncture or laceration of dura during a procedure; G96.0 Cerebrospinal fluid leak; G96.19 Other disorders of meninges, not elsewhere classified; L03.312 Cellulitis of back [any part except buttock and flank]; G97.63 Postprocedural seroma of a nervous system organ or structure following a nervous system procedure; K21.9 Gastro-esophageal reflux disease without esophagitis; K44.9 Diaphragmatic hernia without obstruction or gangrene; E78.5 Hyperlipidemia, unspecified; Y83.8 Other surgical procedures as the cause of abnormal reaction of the patient, or of later complication, without mention of misadventure at the time of the procedure; B95.61 Methicillin susceptible Staphylococcus aureus infection as the cause of diseases classified elsewhere; R51 Headache; D72.829 Elevated white blood cell count, unspecified; E66.9 Obesity, unspecified; Z68.29 Body mass index [BMI] 29.0-29.9, adult
CPT/HCPCS: 36415; 36569; 71010-TC; 72158-TC; 77001-TC; 80053; 82550; 82803; 83605; 84484; 85025; 85027; 85610; 85730; 86850; 86900; 86901; 87040; 87070; 87075; 87086; 87186; 87205; 93005; 93010; 94760; 97116-GP; 97162-GP; 99282-25; C1751; C1887; G0378; J1644